=== PATIENT | male | born 1990 | race Caucasian/White ===

== ENCOUNTER 2016-07-26 18:17 | Emergency (ER) | payer OTHER ==
[~2016-07-26 18:17] MED LIST: /ACETCOD2T PO; /MOM400 PO; /QUET10TA PO; ABIL10TA PO; AMIT8CAP PO; AMIT8CAP4 PO; AMLO10TA2 PO; AMLO25TA PO; ASPI81TA21 PO; BACITAB3 PO; BACT800T5 PO; BENT10CA PO; CIPR500T3 PO; CIPR500T89 PO; COLA50CA3 PO; COLC1CAP PO; CULT10CA2 PO; CYMB1CAP PO; DEPA500T2 PO; DESM1TAB4 PO; DITR5TAB PO; DRIS50002 PO; EPIP0.3I2 IM; EPIP0.3I2 INJ; FLAG500T PO; GLYC3350 PO; HYDR-3363 PO; HYDR-3713 PO; HYDRO50TAB PO; IBUP200T2 PO; IBUP600T26 PO; IBUP80TA PO; IMOD2CHW PO; IMOD2TAB16 PO; INVE234I IM; INVE39IN IM; K-TA10TA2 PO; K-TA1TAB PO; KLOR1CAP2 PO; LAMO25TA2 PO; LATU40TA PO; LEVA500T PO; MACR100C3 PO; MAGO400T PO; MELO15TA4 PO; META28PO PO; META48.54 PO; METO5TAB2 PO; MIRA3350 PO; MIRT15TA3 PO; OXYB5TA PO; PANT40TA2 PO; PENT500C PO; PERC10TA PO; PERC5TAB PO; PRED20TA PO; PRED50TA PO; PRIL40CA PO; PROZ20CA11 PO; PROZ40CA PO; Q PA PO; QUET1TAB8 PO; REGL10TA6 PO; SENN8.6C PO; SENN8.6T76 PO; SENO8.6T11 PO; SENO8.6T2 PO; SERO1TAB PO; SILV1CRE19 TOP; TOPA25TA PO; TOPA25TA10 PO; TRAZ50TA4 PO; TYLE650T35 PO; VITA100066 PO; VITA50003 PO; ZOFR4TAB3 PO; ZYVO100T PO; [UNRECOGNIZED DRUG - CODE] PO; [UNRECOGNIZED DRUG - CODE] PO; atarax PO; keflex PO
[2016-07-26] MEDS ORDERED: ONDANSETRON 4MG/2ML VIAL (J2405) As Ordered ONE (19:19)
[2016-07-26] MEDS ORDERED: MECLIZINE 12.5 MG TAB As Ordered ONE (19:20)
[2016-07-26 19:35] LABS: BASO % 0.8 % (0.0-1.0); EOS # 0.2 K/mm3 (0.0-0.50); EOS % 2.6 % (0.0-3.0); LARGE UNSTAINED CELL # 0.2 K/mm3 (0.0-0.4); LYMPH # 2.5 K/mm3 (1.5-6.5); LYMPH % 34.2 % (24.0-44.0); MEAN CORPUSCULAR HEMOGLOBIN 29.3 pg (27.0-33.0); MEAN CORPUSCULAR HGB CONC 34.3 g/dl (32.0-36.5); MEAN CORPUSCULAR VOLUME 85.3 fl (80.0-96.0); MONO # 0.4 K/mm3 (0.0-0.8); MONO % 6.1 % (0.0-5.0); NEUTROPHILS # 3.9 K/mm3 (1.8-7.7); NEUTROPHILS % 53.4 % (36.0-66.0); PLATELET COUNT, AUTOMATED 219 k/mm3 (150-450); RED CELL DISTRIBUTION WIDTH 13.1 % (11.5-14.5); WHITE BLOOD COUNT 7.2 K/mm3 (4.0-10.0)
[2016-07-26 19:48] LABS: INR 0.96
--- NOTE | 2016-07-26 19:50 | REPUSA ---
CLINICAL HISTORY: Dizzy. TECHNIQUE: Multiple axial brain CT scan sections were obtained from base to vertex without contrast a dministration. COMMENTS: The study shows normal configuration of sella turcica. There are no intra or extra-axial collections. There is no mass effect or midline shift. There is no evidence of hematoma formation. No hydrocephal us is present. No abnormal calcifications are noted. No significant abnormalities are seen either in the posterior fossa or supratentorial compartment. The sinuses and mastoid air cells are patent. IMPRESSION: No evidence of acute intracranial pathology. Thank you for your kind referral of this patient.
[2016-07-26 20:05] LABS: ALBUMIN 3.3 GM/DL (3.2-5.2); ALBUMIN/GLOBULIN RATIO 1.03 (1.00-1.93); ALKALINE PHOSPHATASE 89 U/L (45-117); ALT/SGPT 50 U/L (12-78); AMYLASE 49 U/L (25-115); ANION GAP 10 MEQ/L (8-16); AST/SGOT 23 U/L (15-37); BILIRUBIN,DIRECT < 0.1 MG/DL (0.0-0.2); BILIRUBIN,TOTAL 0.1 MG/DL (0.2-1.0); BLOOD UREA NITROGEN 11 MG/DL (7-18); CALCIUM LEVEL 8.4 MG/DL (8.5-10.1); CARBON DIOXIDE LEVEL 26 MEQ/L (21-32); CHLORIDE LEVEL 107 MEQ/L (98-107); GLOMERULAR FILTRATION RATE > 60.0 (>60); GLUCOSE, FASTING 209 MG/DL (70-105); POTASSIUM SERUM 3.8 MEQ/L (3.5-5.1); SODIUM LEVEL 143 MEQ/L (136-145); TOTAL PROTEIN 6.5 GM/DL (6.4-8.2)
--- NOTE | 2016-07-26 21:21 | EDDOCDS ---
Nurse's Notes [facility] Name: Emanuel eDl Rio Age: 26 yrs Sex: Male : 1990 Arrival Date: 07/26/2016 Time: 18:17 Bed 14 Private MD: Elvira Latham Diagnosis: Vertigo of central origin;Labyrinthitis Presentation: 07/26 18:22 Presenting complaint: EMS states: Patient complains of being dizzy since last night js13 with nausea and vomited X1 today. Suicide/Homicide risk assessment- the patient denies having any suicidal and/or homicidal ideations and does not present with any other emotional, behavioral or mental health complaints. Status: Patient is not a conference services director or dependent. Transition of care: patient was not received from another setting of care. Care prior to arrival: See EMS report. IV initiated. Glucose check. 171. 18:22 Acuity: YAMEL Level 3 js13 18:22 Method Of Arrival: Ambulance 13 18:31 Adult Sepsis Screening: The patient does not have new or worsening altered mentation. js13 Patient's respiratory rate is less than 22. Systolic blood pressure is greater than 100. Patient has a qSOFA score of 0- Negative Sepsis Screen. Triage Assessment: 18:30 General: Appears in no apparent distress, Behavior is cooperative. Pain: Location: head js13 Pain currently is 4 out of 10 on a pain scale. Pt Declines HIV testing. Neurological: Level of Consciousness is awake, alert, obeys commands. Respiratory: Airway is patent Respiratory effort is even, unlabored, Respiratory pattern is regular, symmetrical. Derm: Skin is pink, warm & dry. Historical: - Allergies: Bees (Swelling); benadryl IV (coughs); SULFA (SULFONAMIDES) (Rash); Trazodone; Zyrtec (Hives); - Home Meds: 1. Topamax 25 mg Oral tab 2 times per day 2. Acidophilus Oral tab 100 million units twice a day 3. amlodipine 10 mg Oral tab nightly 4. desmopressin 0.1mg nightly 5. Invega Sustenna 234 mg/1.5 mL intramuscular syrg 1.5 mL every 3 weeks 6. EpiPen 0.3 mg/0.3 mL (1:1,000) injection atIn 0.3 mL as needed 7. lamotrigine 25 mg Oral tr24 daily 8. Prozac 40 mg Oral cap 1 cap once daily 9. potassium chloride 10 mEq Oral cpER 1 cap 3 times per day 10. pantoprazole 40 mg oral TbEC 1 tab once daily 11. oxybutynin chloride 5 mg Oral tab 1 tab 3 times per day 12. mirtazapine 15 mg Oral tab once daily - PMHx: Cholelithiasis; Depression; GERD; Hypertension; MRSA; Schizo-Affective Disorder; urinary difficulties; - PSHx: baldder botox; Arthroscopy, Knee- Right; - Social history: Smoking status: Patient states was never smoker of tobacco. No barriers to communication noted, The patient speaks fluent Romansh. - Family history: Not pertinent. - : The pt / caregiver states he / she is not on anticoagulants. Home medication list is obtained from the facility MAR. - Exposure Risk Screening:: None identified. Screenin:53 Screening information is obtained from the patient. Fall risk: No risks identified. ja5 Assistance ADL's: requires no assistance with activities of daily living. Assistance ADL's: Requires assistance with medication administration, assistance is provided by TLS. Abuse/DV Screen: The patient / caregiver reports he/she is: not in a situation that causes fear, pain or injury. Nutritional screening: On no prescribed diet. Advance Directives: There is an active Power of Pattern Cleaner, Cyndi Kahn, Mother. home support is adequate. Assessment: 18:51 General: Appears in no apparent distress, Behavior is appropriate for age, cooperative. ja5 Pain: Denies pain. Neurological: Level of Consciousness is awake, alert, Oriented to person, place, time, Ui Software Engineer are equal bilaterally Moves all extremities. Speech is normal. Cardiovascular: Capillary refill < 3 seconds Heart tones S1 S2 present Rhythm is sinus rhythm No ectopy. Respiratory: Airway is patent Respiratory effort is even, unlabored, Respiratory pattern is regular, symmetrical, Breath sounds are clear bilaterally. Derm: Skin is intact, Skin is dry, Skin is pink, warm & dry. normal, Skin temperature is warm. 19:28 Reassessment: Patient appears in no apparent distress at this time. Patient denies pain tm5 at this time. PT VOICES NO COMPLAINTS AT THIS TIME, RESP EASY, NO S/S OF ANY DISTRESS. Cardiovascular: Rhythm is sinus rhythm No ectopy. 20:54 General: Appears in no apparent distress, Behavior is appropriate for age, cooperative. af2 General: pt resting on stretcher quietly, offers no complaints at this time. will continue to monitor. bed locked and in lowest position, side rails up x2, call light is within reach. . Neurological: Level of Consciousness is awake, alert, Oriented to person, place, time. Respiratory: Airway is patent Respiratory effort is even, unlabored. Derm: Skin is normal. 21:18 General: Appears in no apparent distress, comfortable, Behavior is cooperative, pt mlc report feeling dizzy. Norman Rodriguez made aware. pt states he is comfortable with discharge. . Neurological: Level of Consciousness is awake, alert, Oriented to person, place, time. Respiratory: Airway is patent Respiratory effort is even, unlabored, Respiratory pattern is regular. Derm: Skin is normal. Vital Signs: 18:29 BP 167 / 73; Pulse 92; Resp 20; Temp 99.0(TE); Pulse Ox 97% on R/A; Weight 143.79 kg; dem1 Height 5 ft. 8 in. (172.72 cm); Pain 0/10; 18:32 BP 167 / 77 (auto/); tm5 18:33 Pulse 88 MON; Resp 18 S; Pulse Ox 97% on R/A; Pain 0/10; tm5 21:08 BP 167 / 91; Pulse 83; Resp 20; Temp 97.8(O); Pulse Ox 100% on R/A; Pain 0/10; alfredito 21:18 BP 142 / 62; Pulse 86; Resp 18; Temp 98.8; Pulse Ox 98% ; Pain 0/10; mlc 18:29 Body Mass Index 48.20 (143.79 kg, 172.72 cm) [facility] Vitals: 18:29 Log In Time N/A - ambulance arrival. [facility] ED Course: 18:18 Patient visited by Caroline Cherry, Train Station Server. lbd 18:18 Elvira Latham is Private Physician. lbd 18:18 Karen Chen, RN is Primary Nurse. lbd 18:18 Patient moved to Waiting lbd 18:18 Patient moved to 14 lbd 18:23 Triage Initiated js13 18:30 Patient visited by Joanie Servin. [facility] 18:30 Patient visited by Joanie Servin. dem1 18:30 Pt greeted and oriented to ED. Patient advised of names of staff involved in care, [facility] location of call rajput, wait times and NPO status. Patient has correct armband on for positive identification. Placed in gown. Bed in low position. Call light in reach. Side rails up X2. 18:31 Maintain field IV. Dressing intact. Good blood return noted. Site clean & dry. Gauge & js13 site: 20 gauge LAC. 18:32 Patient visited by Karen Wise RN. js13 18:33 Patient visited by Joanie Servin. dem1 18:33 nuclear monitoring technician on. Pulse ox on. NIBP on. dem1 18:55 The patient / caregiver is instructed regarding the plan of care and ED course. ja5 18:57 Primary Nurse role handed off by Karen Chen RN ja5 19:04 Norman Rodriguez FNP is PHCP. ke 19:04 Patient visited by Norman Rodriguez FNP. ke 19:04 Patient visited by Norman Rodriguez FNP. ke 19:[address],CARMEN is Primary Nurse. tm5 19:05 Patient visited by Ruth Ann Lane RN. tm5 19:05 Report received from Kate Bay RN, assumed care of pt at this time. tm5 19:22 Patient visited by Monalisa Jennings PCA. ls3 19:22 EKG done. (by ED staff). Reviewed by Norman LOZANO. ls3 19:24 [facility] [place] was scanned into [employer] and attached to record. ks16 19:27 Labs drawn. (by ED staff). Sent per order to lab. tm5 19:28 Troponin Sent. tm5 19:28 CIP Sent. tm5 19:28 CBC with Diff Sent. tm5 19:28 Prothrombin Time Profile\E\INR Sent. tm5 19:53 Patient visited by Norman Rodriguez FNP. ke 20:04 BASIC METABOLIC PROFILE Sent. mlc 20:05 LIVER PROFILE Sent. mlc 20:05 LIPASE Sent. mlc 20:05 AMYLASE Sent. mlc 20:15 CT Head Without Contrast Returned. EDMS 20:28 Patient visited by Norman Rodriguez FNP. ke 20:37 Patient visited by Ruth Ann Lane,CARMEN. tm5 20:55 Patient visited by Mey John RN. af2 21:00 Elvira Latham is Referral Physician. ke 21:08 Patient visited by Gabby Briceno PCA. alfredito 21:18 Discontinued IV lock intact, bleeding controlled, pressure dressing applied, No mlc redness/swelling at site. No procedures done that require assistance. Administered Medications: 19:26 Drug: NS 0.9% 1000 ml [sodium chloride 0.9 % intravenous solution] Route: IV; Rate: af2 bolus; Site: left antecubital; 19:26 Drug: Meclizine 50 mg [meclizine 12.5 mg tablet (4 tabs)] Route: PO; af2 19:27 Drug: Ondansetron 4 mg [ondansetron HCl 2 mg/mL intravenous solution (2 mL)] Route: af2 IVP; Site: left antecubital; Order Results: Lab Order: CBC with Diff; SPEC'M 07/26/16 19:25 Test: WHITE BLOOD COUNT; Value: 7.2; Range: 4.0-10.0; Units: K/mm3; Status: F Test: RED BLOOD COUNT; Value: 4.80; Range: 4.30-6.10; Units: M/mm3; Status: F Test: HEMOGLOBIN; Value: 14.1; Range: 14.0-18.0; Units: g/dl; Status: F Test: HEMATOCRIT; Value: 40.9; Range: 42.0-52.0; Abnormal: Below low normal; Units: %; Status: F Test: MEAN CORPUSCULAR VOLUME; Value: 85.3; Range: 80.0-96.0; Units: fl; Status: F Test: MEAN CORPUSCULAR HEMOGLOBIN; Value: 29.3; Range: 27.0-33.0; Units: pg; Status: F Test: MEAN CORPUSCULAR HGB CONC; Value: 34.3; Range: 32.0-36.5; Units: g/dl; Status: F Test: RED CELL DISTRIBUTION WIDTH; Value: 13.1; Range: 11.5-14.5; Units: %; Status: F Test: PLATELET COUNT, AUTOMATED; Value: 219; Range: 150-450; Units: k/mm3; Status: F Test: NEUTROPHILS %; Value: 53.4; Range: 36.0-66.0; Units: %; Status: F Test: LYMPH %; Value: 34.2; Range: 24.0-44.0; Units: %; Status: F Test: MONO %; Value: 6.1; Range: 0.0-5.0; Abnormal: Above high normal; Units: %; Status: F Test: EOS %; Value: 2.6; Range: 0.0-3.0; Units: %; Status: F Test: BASO %; Value: 0.8; Range: 0.0-1.0; Units: %; Status: F Test: LARGE UNSTAINED CELL %; Value: 3.0; Range: 0.0-4.0; Units: %; Status: F Test: NEUTROPHILS #; Value: 3.9; Range: 1.8-7.7; Units: K/mm3; Status: F Test: LYMPH #; Value: 2.5; Range: 1.5-6.5; Units: K/mm3; Status: F Test: MONO #; Value: 0.4; Range: 0.0-0.8; Units: K/mm3; Status: F Test: EOS #; Value: 0.2; Range: 0.0-0.50; Units: K/mm3; Status: F Test: BASO #; Value: 0.0; Range: 0.0-0.2; Units: K/mm3; Status: F Test: LARGE UNSTAINED CELL #; Value: 0.2; Range: 0.0-0.4; Units: K/mm3; Status: F Lab Order: Prothrombin Time Profile\E\INR; SPEC'M 07/26/16 19:25 Test: PROTHROMBIN TIME; Value: 12.9; Range: 12.3-14.5; Units: SECONDS; Status: F Test: INR; Value: 0.96; Status: F Test Note: ; THERAPUTIC HUMAN INR VALUES INDICATIONS NORMAL RANGES PROPHYLAXIS/TREATMENT OF: VENOUS THROMBOSIS 2.0-3.0 PULMONARY EMBOLISM 2.0-3.0 PREVENTION OF SYSTEMIC EMBOLISM FROM: TISSUE HEART VALVES 2.0-3.0 ACUTE MYOCARDIAL INFARCTION 2.0-3.0 VALVULAR HEART DISEASE 2.0-3.0 ATRIAL FIBRILLATION 2.0-3.0 MECHANICAL VALVES(HIGH RISK) 2.5-3.5 RECURRENT MYOCARDIAL INFARCTION 2.5-3.5 Lab Order: CIP; [facility] 07/26/16 19:25 Test: CPK CREATINE PHOSPHOKINASE; Value: 287; Range: 39-308; Units: U/L; Status: F Test: CK-MB VALUE MASS; Value: 3.5; Range: 0.0-3.6; Units: NG/ML; Status: F Test: MB/CK RELATIVE INDEX; Value: 1.21; Range: < OR =4; Status: F Test Note: ; DIAGNOSIS CRITERIA MMB ng/ml Relative Index (RI) NON-AMI < or = 5 N/A MARY ZONE > 5 < or = 4 AMI > 5 > 4 Lab Order: Troponin; [facility] 07/26/16 19:25 Test: TROPONIN I; Value: < 0.02; Range: < 0.10; Units: NG/ML; Status: F Test Note: ; Troponin I Reference Interval for [place] LOCI: 99th Percentile= 0.00-0.045 ng/ml Risk Stratification: <= 0.10 ng/ml Decreased Risk for Adverse Clinical Events. 0.10-1.50 ng/ml Increased Risk for Adverse Clinical Events. Evaluation of additional criterion and/or repeat testing in 2-6 hours is suggested to rule out myocardial damage. >= 1.50 ng/ml Indicative of Myocardial Injury. Lab Order: AMYLASE; [facility] 07/26/16 19:25 Test: AMYLASE; Value: 49; Range: 25-115; Units: U/L; Status: F Lab Order: LIPASE; [facility] 07/26/16 19:25 Test: LIPASE; Value: 161; Range: 73-393; Units: U/L; Status: F Lab Order: LIVER PROFILE; [facility] 07/26/16 19:25 Test: AST/SGOT; Value: 23; Range: 15-37; Units: U/L; Status: F Test: ALT/SGPT; Value: 50; Range: 12-78; Units: U/L; Status: F Test: ALKALINE PHOSPHATASE; Value: 89; Range: 45-117; Units: U/L; Status: F Test: BILIRUBIN,TOTAL; Value: 0.1; Range: 0.2-1.0; Abnormal: Below low normal; Units: MG/DL; Status: F Test: BILIRUBIN,DIRECT; Value: < 0.1; Range: 0.0-0.2; Units: MG/DL; Status: F Test: TOTAL PROTEIN; Value: 6.5; Range: 6.4-8.2; Units: GM/DL; Status: F Test: ALBUMIN; Value: 3.3; Range: 3.2-5.2; Units: GM/DL; Status: F Test: ALBUMIN/GLOBULIN RATIO; Value: 1.03; Range: 1.00-1.93; Status: F Lab Order: BASIC METABOLIC PROFILE; SPEC'M 07/26/16 19:25 Test: GLUCOSE, FASTING; Value: 209; Range: 70-105; Abnormal: Above high normal; Units: MG/DL; Status: F Test: BLOOD UREA NITROGEN; Value: 11; Range: 7-18; Units: MG/DL; Status: F Test: CREATININE FOR GFR; Value: 0.90; Range: 0.70-1.30; Units: MG/DL; Status: F Test: GLOMERULAR FILTRATION RATE; Value: > 60.0; Range: >60; Status: F Test: SODIUM LEVEL; Value: 143; Range: 136-145; Units: MEQ/L; Status: F Test: POTASSIUM SERUM; Value: 3.8; Range: 3.5-5.1; Units: MEQ/L; Status: F Test: CHLORIDE LEVEL; Value: 107; Range: 98-107; Units: MEQ/L; Status: F Test: CARBON DIOXIDE LEVEL; Value: 26; Range: 21-32; Units: MEQ/L; Status: F Test: ANION GAP; Value: 10; Range: 8-16; Units: MEQ/L; Status: F Test: CALCIUM LEVEL; Value: 8.4; Range: 8.5-10.1; Abnormal: Below low normal; Units: MG/DL; Status: F Test Note: ; Units are mL/min/1.73 m2 Chronic Kidney Disease Staging per NKF: Stage I & II GFR >=60 Normal to Mildly Decreased Stage III GFR 30-59 Moderately Decreased Stage IV GFR 15-29 Severely Decreased Stage V GFR <15 Very Little GFR Left ESRD GFR <15 on COMMUNITY SUPPORT PROFESSIONAL Radiology Order: CT Head Without Contrast Test: CT Head Without Contrast REASON FOR EXAMINATION: dizzy; ; CLINICAL HISTORY: Dizzy.; TECHNIQUE: Multiple axial brain CT scan sections were obtained from base to vertex without contrast a; dministration.; COMMENTS:; The study shows normal configuration of sella turcica. There are no intra or extra-axial collections.; There is no mass effect or midline shift. There is no evidence of hematoma formation. No hydrocephal; us is present. No abnormal calcifications are noted.; No significant abnormalities are seen either in the posterior fossa or supratentorial compartment.; The sinuses and mastoid air cells are patent.; IMPRESSION:; No evidence of acute intracranial pathology.; Thank you for your kind referral of this patient.; ; Outcome: 21:00 Discharge ordered by Provider. 21:18 Discharge Assessment: Patient awake, alert and oriented x 3. No cognitive and/or mlc functional deficits noted. Patient verbalized understanding of disposition instructions. patient administered narcotics - no. The following High Risk Discharge criteria are identified: None. Discharged to home ambulatory. Condition: good Condition: stable. Discharge instructions given to patient, Instructed on discharge instructions, follow up and referral plans. medication usage, Demonstrated understanding of instructions, medications, Pt was receptive of discharge instructions/ teaching. Prescriptions given X 1. CT Study completed. Property sent home with patient. 21:20 [place] the [place]. [facility] [place] Signatures: Dispatcher [employer] EDMS Caroline Cherry, Train Station Server Unit lbd Norman Rodriguez, DIRECTOR HOSPICE OPERATIONS DIRECTOR HOSPICE OPERATIONS Gabby Briceno, DEAN OF MEN DEAN OF MEN alfredito Gareth, Demalexandreashia dem1 Karen Wise,RN RN js13 Susan Blackman,CARMEN RN [facility] [place] Mey John RN RN af2 Monalisa Jennings, DEAN OF MEN DEAN OF MEN ls3 Jayashree Sandoval, Reg Reg ks[address],RN RN tm5 Alyson Connor,CARMEN RN ja5 Corrections: (The following items were deleted from the chart) 19: 19:28 AMYLASE+LAB sent. 5 EDMS 19:31 19:28 BASIC METABOLIC PROFILE+LAB sent. [facility] EDMS :31 19:28 LIPASE+LAB sent. 5 EDMS 19:31 19:28 LIVER PROFILE+LAB sent. tm5 EDMS MTDD
--- NOTE | 2016-07-26 21:21 | EDDOCDS ---
Physician Documentation [facility] Name: Emanuel Del Rio Age: 26 yrs Sex: Male : 1990 Arrival Date: 07/26/2016 Time: 18:17 Bed 14 Private MD: Elvira Latham Disposition: 07/26/16 21:00 Discharged to Home/Self Care. Impression: Vertigo of central origin, Labyrinthitis. - Condition is Stable. - Discharge Instructions: Labyrinthitis, Mzmk-es-Prob, Vertigo. - Prescriptions for Meclizine 25 mg Oral Tablet - take 1 tablet by ORAL route every 8 hours As needed; 30 tablet. - Medication Reconciliation, Local Pharmacy Hours form. - Follow up: Elvira Latham; When: 2 - 3 days; Reason: Recheck today's complaints, Continuance of care. - Problem is an ongoing problem. - Symptoms have improved. Historical: - Allergies: Bees (Swelling); benadryl IV (coughs); SULFA (SULFONAMIDES) (Rash); Trazodone; Zyrtec (Hives); - Home Meds: 1. Topamax 25 mg Oral tab 2 times per day 2. Acidophilus Oral tab 100 million units twice a day 3. amlodipine 10 mg Oral tab nightly 4. desmopressin 0.1mg nightly 5. Invega Sustenna 234 mg/1.5 mL intramuscular syrg 1.5 mL every 3 weeks 6. EpiPen 0.3 mg/0.3 mL (1:1,000) injection atIn 0.3 mL as needed 7. lamotrigine 25 mg Oral tr24 daily 8. Prozac 40 mg Oral cap 1 cap once daily 9. potassium chloride 10 mEq Oral cpER 1 cap 3 times per day 10. pantoprazole 40 mg oral TbEC 1 tab once daily 11. oxybutynin chloride 5 mg Oral tab 1 tab 3 times per day 12. mirtazapine 15 mg Oral tab once daily - PMHx: Cholelithiasis; Depression; GERD; Hypertension; MRSA; Schizo-Affective Disorder; urinary difficulties; - PSHx: baldder botox; Arthroscopy, Knee- Right; - Social history: Smoking status: Patient states was never smoker of tobacco. No barriers to communication noted, The patient speaks fluent Syriac. - Family history: Not pertinent. - : The pt / caregiver states he / she is not on anticoagulants. Home medication list is obtained from the facility MAR. - Exposure Risk Screening:: None identified. Vital Signs: 07/26 18:29 BP 167 / 73; Pulse 92; Resp 20; Temp 99.0(TE); Pulse Ox 97% on R/A; Weight 143.79 kg / dem1 317 lbs; Height 5 ft. 8 in. (172.72 cm); Pain 0/10; 18:32 BP 167 / 77 (auto/); tm5 18:33 Pulse 88 MON; Resp 18 S; Pulse Ox 97% on R/A; Pain 0/10; tm5 21:08 BP 167 / 91; Pulse 83; Resp 20; Temp 97.8(O); Pulse Ox 100% on R/A; Pain 0/10; alfredito 21:18 BP 142 / 62; Pulse 86; Resp 18; Temp 98.8; Pulse Ox 98% ; Pain 0/10; mlc 18:29 Body Mass Index 48.20 (143.79 kg, 172.72 cm) dem1 MDM: 19:15 NS 0.9% 1000 ml IV at bolus once ordered. ke 19:15 Ondansetron 4 mg IVP once ordered. ke 19:15 IV Saline Lock ordered. ke 19:15 Undress patient appropriately for examination ordered. ke 19:15 Meclizine 50 mg PO once ordered. ke 19:16 CBC with Diff Ordered. EDMS 19:16 Prothrombin Time Profile\E\INR Ordered. EDMS 19:17 Abdomen, Flat\E\Upright,PA Chest Ordered. EDMS 19:17 NOTHING BY MOUTH+DIET ordered. EDMS 19:17 CT Head Without Contrast Ordered. EDMS 19:17 CIP Ordered. EDMS 19:17 Troponin Ordered. EDMS 19:17 ECG WITH READING ER PHYS+CARDIAG ordered. EDMS 19:23 Financial registration complete. ks16 19:24 [facility] [place] Payment Agreement was scanned into [employer] and attached to record. ks16 19:33 AMYLASE Ordered. EDMS 19:33 LIPASE Ordered. EDMS 19:33 LIVER PROFILE Ordered. EDMS 19:34 BASIC METABOLIC PROFILE Ordered. EDMS 20:58 CBC with Diff Reviewed. ke 20:58 LIVER PROFILE Reviewed. ke 20:58 BASIC METABOLIC PROFILE Reviewed. ke 20:58 Prothrombin Time Profile\E\INR Reviewed. ke 20:58 CIP Reviewed. ke 20:58 Troponin Reviewed. ke 20:58 AMYLASE Reviewed. ke 20:58 LIPASE Reviewed. ke 20:58 CT Head Without Contrast Reviewed. ke Administered Medications: 19:26 Drug: NS 0.9% 1000 ml [sodium chloride 0.9 % intravenous solution] Route: IV; Rate: af2 bolus; Site: left antecubital; 19:26 Drug: Meclizine 50 mg [meclizine 12.5 mg tablet (4 tabs)] Route: PO; af2 19:27 Drug: Ondansetron 4 mg [ondansetron HCl 2 mg/mL intravenous solution (2 mL)] Route: af2 IVP; Site: left antecubital; Signatures: Dispatcher [employer] EDNorman Horton, CORPORATE SPECIALIST CORPORATE SPECIALIST Karen CartagenaRN CARMEN js13 Susan Blackman RN RN mlc Sorenson, Kimberly, Reg Reg ks16 Mey John RN af2 The chart was reviewed and I authenticate all verbal orders and agree with the evaluation and treatment provided.Corrections: (The following items were deleted from the chart) 19:31 19:16 AMYLASE+LAB ordered. EDMS EDMS 19:31 19:16 BASIC METABOLIC PROFILE+LAB ordered. EDMS EDMS 19:31 19:16 LIPASE+LAB ordered. EDMS EDMS 19:31 19:16 LIVER PROFILE+LAB ordered. EDMS EDMS Attachments: 19:24 [facility] [place] Payment Agreement [email or web address] MTDD
--- NOTE | 2016-07-27 07:01 | REP ---
Clinical: Abdominal pain and vomiting. Technique: Supine and cross-table lateral views of the abdomen and pelvis. Findings: There is no evidence for bowel obstruction and no obvious evidence to suggest perforation. Moderate fecal stasis and constipation suggested. No organomegaly nor abnormal calcifications. Skeletal structures intact. Supine view of the chest normal. Impression: Moderate fecal stasis and constipation suggested. Signed by Bhavin Riddle MD 07/27/2016 06:52 A
--- NOTE | 2016-07-27 08:03 | ECGEPIP ---
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
--- NOTE | 2016-07-28 22:21 | EDDOCDS ---
Physician Documentation [facility] Name: Emanuel Del Rio Age: 26 yrs Sex: Male : 1990 Arrival Date: 07/26/2016 Time: 18:17 Bed 14 Private MD: Elvira Latham Disposition: 07/26/16 21:00 Discharged to Home/Self Care. Impression: Vertigo of central origin, Labyrinthitis. - Condition is Stable. - Discharge Instructions: Labyrinthitis, [id number], Vertigo. - Prescriptions for Meclizine 25 mg Oral Tablet - take 1 tablet by ORAL route every 8 hours As needed; 30 tablet. - Medication Reconciliation, Local Pharmacy Hours form. - Follow up: Elvira Latham; When: 2 - 3 days; Reason: Recheck today's complaints, Continuance of care. - Problem is an ongoing problem. - Symptoms have improved. Historical: - Allergies: Bees (Swelling); benadryl IV (coughs); SULFA (SULFONAMIDES) (Rash); Trazodone; Zyrtec (Hives); - Home Meds: 1. Topamax 25 mg Oral tab 2 times per day 2. Acidophilus Oral tab 100 million units twice a day 3. amlodipine 10 mg Oral tab nightly 4. desmopressin 0.1mg nightly 5. Invega Sustenna 234 mg/1.5 mL intramuscular syrg 1.5 mL every 3 weeks 6. EpiPen 0.3 mg/0.3 mL (1:1,000) injection atIn 0.3 mL as needed 7. lamotrigine 25 mg Oral tr24 daily 8. Prozac 40 mg Oral cap 1 cap once daily 9. potassium chloride 10 mEq Oral cpER 1 cap 3 times per day 10. pantoprazole 40 mg oral TbEC 1 tab once daily 11. oxybutynin chloride 5 mg Oral tab 1 tab 3 times per day 12. mirtazapine 15 mg Oral tab once daily - PMHx: Cholelithiasis; Depression; GERD; Hypertension; MRSA; Schizo-Affective Disorder; urinary difficulties; - PSHx: baldder botox; Arthroscopy, Knee- Right; - Social history: Smoking status: Patient states was never smoker of tobacco. No barriers to communication noted, The patient speaks fluent Romanian. - Family history: Not pertinent. - : The pt / caregiver states he / she is not on anticoagulants. Home medication list is obtained from the facility MAR. - Exposure Risk Screening:: None identified. Vital Signs: 07/26 18:29 BP 167 / 73; Pulse 92; Resp 20; Temp 99.0(TE); Pulse Ox 97% on R/A; Weight 143.79 kg / dem1 317 lbs; Height 5 ft. 8 in. (172.72 cm); Pain 0/10; 18:32 BP 167 / 77 (auto/); tm5 18:33 Pulse 88 MON; Resp 18 S; Pulse Ox 97% on R/A; Pain 0/10; tm5 21:08 BP 167 / 91; Pulse 83; Resp 20; Temp 97.8(O); Pulse Ox 100% on R/A; Pain 0/10; alfredito 21:18 BP 142 / 62; Pulse 86; Resp 18; Temp 98.8; Pulse Ox 98% ; Pain 0/10; mlc 18:29 Body Mass Index 48.20 (143.79 kg, 172.72 cm) dem1 MDM: 19:15 NS 0.9% 1000 ml IV at bolus once ordered. ke 19:15 Ondansetron 4 mg IVP once ordered. ke 19:15 IV Saline Lock ordered. ke 19:15 Undress patient appropriately for examination ordered. ke 19:15 Meclizine 50 mg PO once ordered. ke 19:16 CBC with Diff Ordered. EDMS 19:16 Prothrombin Time Profile\E\INR Ordered. EDMS 19:17 Abdomen, Flat\E\Upright,PA Chest Ordered. EDMS 19:17 NOTHING BY MOUTH+DIET ordered. EDMS 19:17 CT Head Without Contrast Ordered. EDMS 19:17 CIP Ordered. EDMS 19:17 Troponin Ordered. EDMS 19:17 ECG WITH READING ER PHYS+CARDIAG ordered. EDMS 19:23 Financial registration complete. [email or web address] 19:24 [place] [place] was scanned into [employer] and attached to record. [email or web address] 19:33 AMYLASE Ordered. EDMS 19:33 LIPASE Ordered. EDMS 19:33 LIVER PROFILE Ordered. EDMS 19:34 BASIC METABOLIC PROFILE Ordered. EDMS 20:58 CBC with Diff Reviewed. ke 20:58 LIVER PROFILE Reviewed. ke 20:58 BASIC METABOLIC PROFILE Reviewed. ke 20:58 Prothrombin Time Profile\E\INR Reviewed. ke 20:58 CIP Reviewed. ke 20:58 Troponin Reviewed. ke 20:58 AMYLASE Reviewed. ke 20:58 LIPASE Reviewed. ke 20:58 CT Head Without Contrast Reviewed. ke 07/27 11:59 T-Sheet-- Draft Copy was scanned into [employer] and attached to record. gb 11:59 ECG/EKG was scanned into [employer] and attached to record. gb 15:07 Radiology Report was scanned into [employer] and attached to record. gb Administered Medications: 07/26 19:26 Drug: NS 0.9% 1000 ml [sodium chloride 0.9 % intravenous solution] Route: IV; Rate: af2 bolus; Site: left antecubital; 19:26 Drug: Meclizine 50 mg [meclizine 12.5 mg tablet (4 tabs)] Route: PO; af2 19:27 Drug: Ondansetron 4 mg [ondansetron HCl 2 mg/mL intravenous solution (2 mL)] Route: af2 IVP; Site: left antecubital; Signatures: Dispatcher [employer] EDMS Tita Wu, Reg Reg gb Norman Rodriguez, FIELD SALES MANAGER FIELD SALES MANAGER Karen CartagenaRN RN [id number] Susan Blackman RN RN mlc Sorenson, Kimberly, Reg Reg [id number] Mey John RN af2 The chart was reviewed and I authenticate all verbal orders and agree with the evaluation and treatment provided.Corrections: (The following items were deleted from the chart) 19:31 19:16 AMYLASE+LAB ordered. EDMS EDMS 19:31 19:16 BASIC METABOLIC PROFILE+LAB ordered. EDMS EDMS 19:31 19:16 LIPASE+LAB ordered. EDMS EDMS 19:31 19:16 LIVER PROFILE+LAB ordered. EDMS EDMS Attachments: 19:24 [place] [place] Agreement [email or web address] 07/27 11:59 T-Sheet-- Draft Copy gb 11:59 ECG/EKG gb Chart Complete MTDD
--- NOTE | 2016-07-28 22:21 | EDDOCDS ---
Physician Documentation [facility] [place] Name: Emanuel Del Rio Age: 26 yrs Sex: Male : 1990 Arrival Date: 07/26/2016 Time: 18:17 Bed 14 Private MD: Elvira Latham Disposition: 07/26/16 21:00 Discharged to Home/Self Care. Impression: Vertigo of central origin, Labyrinthitis. - Condition is Stable. - Discharge Instructions: Labyrinthitis, [id number], Vertigo. - Prescriptions for Meclizine 25 mg Oral Tablet - take 1 tablet by ORAL route every 8 hours As needed; 30 tablet. - Medication Reconciliation, Local Pharmacy Hours form. - Follow up: Elvira Latham; When: 2 - 3 days; Reason: Recheck today's complaints, Continuance of care. - Problem is an ongoing problem. - Symptoms have improved. Historical: - Allergies: Bees (Swelling); benadryl IV (coughs); SULFA (SULFONAMIDES) (Rash); Trazodone; Zyrtec (Hives); - Home Meds: 1. Topamax 25 mg Oral tab 2 times per day 2. Acidophilus Oral tab 100 million units twice a day 3. amlodipine 10 mg Oral tab nightly 4. desmopressin 0.1mg nightly 5. Invega Sustenna 234 mg/1.5 mL intramuscular syrg 1.5 mL every 3 weeks 6. EpiPen 0.3 mg/0.3 mL (1:1,000) injection atIn 0.3 mL as needed 7. lamotrigine 25 mg Oral tr24 daily 8. Prozac 40 mg Oral cap 1 cap once daily 9. potassium chloride 10 mEq Oral cpER 1 cap 3 times per day 10. pantoprazole 40 mg oral TbEC 1 tab once daily 11. oxybutynin chloride 5 mg Oral tab 1 tab 3 times per day 12. mirtazapine 15 mg Oral tab once daily - PMHx: Cholelithiasis; Depression; GERD; Hypertension; MRSA; Schizo-Affective Disorder; urinary difficulties; - PSHx: baldder botox; Arthroscopy, Knee- Right; - Social history: Smoking status: Patient states was never smoker of tobacco. No barriers to communication noted, The patient speaks fluent Khmer. - Family history: Not pertinent. - : The pt / caregiver states he / she is not on anticoagulants. Home medication list is obtained from the facility MAR. - Exposure Risk Screening:: None identified. Vital Signs: 07/26 18:29 BP 167 / 73; Pulse 92; Resp 20; Temp 99.0(TE); Pulse Ox 97% on R/A; Weight 143.79 kg / dem1 317 lbs; Height 5 ft. 8 in. (172.72 cm); Pain 0/10; 18:32 BP 167 / 77 (auto/); tm5 18:33 Pulse 88 MON; Resp 18 S; Pulse Ox 97% on R/A; Pain 0/10; tm5 21:08 BP 167 / 91; Pulse 83; Resp 20; Temp 97.8(O); Pulse Ox 100% on R/A; Pain 0/10; alfredito 21:18 BP 142 / 62; Pulse 86; Resp 18; Temp 98.8; Pulse Ox 98% ; Pain 0/10; mlc 18:29 Body Mass Index 48.20 (143.79 kg, 172.72 cm) dem1 MDM: 19:15 NS 0.9% 1000 ml IV at bolus once ordered. ke 19:15 Ondansetron 4 mg IVP once ordered. ke 19:15 IV Saline Lock ordered. ke 19:15 Undress patient appropriately for examination ordered. ke 19:15 Meclizine 50 mg PO once ordered. ke 19:16 CBC with Diff Ordered. EDMS 19:16 Prothrombin Time Profile\E\INR Ordered. EDMS 19:17 Abdomen, Flat\E\Upright,PA Chest Ordered. EDMS 19:17 NOTHING BY MOUTH+DIET ordered. EDMS 19:17 CT Head Without Contrast Ordered. EDMS 19:17 CIP Ordered. EDMS 19:17 Troponin Ordered. EDMS 19:17 ECG WITH READING ER PHYS+CARDIAG ordered. EDMS 19:23 Financial registration complete. [email or web address] 19:24 [place] [place] Payment Agreement was scanned into [employer] and attached to record. [email or web address] 19:33 AMYLASE Ordered. EDMS 19:33 LIPASE Ordered. EDMS 19:33 LIVER PROFILE Ordered. EDMS 19:34 BASIC METABOLIC PROFILE Ordered. EDMS 20:58 CBC with Diff Reviewed. ke 20:58 LIVER PROFILE Reviewed. ke 20:58 BASIC METABOLIC PROFILE Reviewed. ke 20:58 Prothrombin Time Profile\E\INR Reviewed. ke 20:58 CIP Reviewed. ke 20:58 Troponin Reviewed. ke 20:58 AMYLASE Reviewed. ke 20:58 LIPASE Reviewed. ke 20:58 CT Head Without Contrast Reviewed. ke 07/27 11:59 T-Sheet-- Draft Copy was scanned into [employer] and attached to record. gb 11:59 ECG/EKG was scanned into [employer] and attached to record. gb 15:07 Radiology Report was scanned into [employer] and attached to record. gb Administered Medications: 07/26 19:26 Drug: NS 0.9% 1000 ml [sodium chloride 0.9 % intravenous solution] Route: IV; Rate: af2 bolus; Site: left antecubital; 19:26 Drug: Meclizine 50 mg [meclizine 12.5 mg tablet (4 tabs)] Route: PO; af2 19:27 Drug: Ondansetron 4 mg [ondansetron HCl 2 mg/mL intravenous solution (2 mL)] Route: af2 IVP; Site: left antecubital; Signatures: Dispatcher [employer] EDMS Tita Wu, Reg Reg gb Norman Rodriguez, BUTTONER BUTTONER Karen CartagenaRN RN [id number] Susan Blackman RN RN mlc Sorenson, Kimberly, Reg Reg [id number] Mey John RN af2 The chart was reviewed and I authenticate all verbal orders and agree with the evaluation and treatment provided.Corrections: (The following items were deleted from the chart) 19:31 19:16 AMYLASE+LAB ordered. EDMS EDMS 19:31 19:16 BASIC METABOLIC PROFILE+LAB ordered. EDMS EDMS 19:31 19:16 LIPASE+LAB ordered. EDMS EDMS 19:31 19:16 LIVER PROFILE+LAB ordered. EDMS EDMS Attachments: 19:24 [facility] [place] Payment Agreement [email or web address] 07/27 11:59 T-Sheet-- Draft Copy gb 11:59 ECG/EKG gb Chart Complete MTDD
--- NOTE | 2016-07-28 22:21 | EDDOCDS ---
Nurse's Notes [facility] Name: Emanuel Del Rio Age: 26 yrs Sex: Male : 1990 Arrival Date: 07/26/2016 Time: 18:17 Bed 14 Private MD: Elvira Latham Diagnosis: Vertigo of central origin;Labyrinthitis Presentation: 07/26 18:22 Presenting complaint: EMS states: Patient complains of being dizzy since last night js13 with nausea and vomited X1 today. Suicide/Homicide risk assessment- the patient denies having any suicidal and/or homicidal ideations and does not present with any other emotional, behavioral or mental health complaints. Status: Patient is not a coordinator volunteer services or dependent. Transition of care: patient was not received from another setting of care. Care prior to arrival: See EMS report. IV initiated. Glucose check. 171. 18:22 Acuity: YAMEL Level 3 js13 18:22 Method Of Arrival: Ambulance 13 18:31 Adult Sepsis Screening: The patient does not have new or worsening altered mentation. js13 Patient's respiratory rate is less than 22. Systolic blood pressure is greater than 100. Patient has a qSOFA score of 0- Negative Sepsis Screen. Triage Assessment: 18:30 General: Appears in no apparent distress, Behavior is cooperative. Pain: Location: head js13 Pain currently is 4 out of 10 on a pain scale. Pt Declines HIV testing. Neurological: Level of Consciousness is awake, alert, obeys commands. Respiratory: Airway is patent Respiratory effort is even, unlabored, Respiratory pattern is regular, symmetrical. Derm: Skin is pink, warm & dry. Historical: - Allergies: Bees (Swelling); benadryl IV (coughs); SULFA (SULFONAMIDES) (Rash); Trazodone; Zyrtec (Hives); - Home Meds: 1. Topamax 25 mg Oral tab 2 times per day 2. Acidophilus Oral tab 100 million units twice a day 3. amlodipine 10 mg Oral tab nightly 4. desmopressin 0.1mg nightly 5. Invega Sustenna 234 mg/1.5 mL intramuscular syrg 1.5 mL every 3 weeks 6. EpiPen 0.3 mg/0.3 mL (1:1,000) injection atIn 0.3 mL as needed 7. lamotrigine 25 mg Oral tr24 daily 8. Prozac 40 mg Oral cap 1 cap once daily 9. potassium chloride 10 mEq Oral cpER 1 cap 3 times per day 10. pantoprazole 40 mg oral TbEC 1 tab once daily 11. oxybutynin chloride 5 mg Oral tab 1 tab 3 times per day 12. mirtazapine 15 mg Oral tab once daily - PMHx: Cholelithiasis; Depression; GERD; Hypertension; MRSA; Schizo-Affective Disorder; urinary difficulties; - PSHx: baldder botox; Arthroscopy, Knee- Right; - Social history: Smoking status: Patient states was never smoker of tobacco. No barriers to communication noted, The patient speaks fluent Wolof. - Family history: Not pertinent. - : The pt / caregiver states he / she is not on anticoagulants. Home medication list is obtained from the facility MAR. - Exposure Risk Screening:: None identified. Screenin:53 Screening information is obtained from the patient. Fall risk: No risks identified. ja5 Assistance ADL's: requires no assistance with activities of daily living. Assistance ADL's: Requires assistance with medication administration, assistance is provided by TLS. Abuse/DV Screen: The patient / caregiver reports he/she is: not in a situation that causes fear, pain or injury. Nutritional screening: On no prescribed diet. Advance Directives: There is an active Power of Metal Bench Patternmaker, Cyndi Kahn, Mother. home support is adequate. Assessment: 18:51 General: Appears in no apparent distress, Behavior is appropriate for age, cooperative. ja5 Pain: Denies pain. Neurological: Level of Consciousness is awake, alert, Oriented to person, place, time, Can Repairer are equal bilaterally Moves all extremities. Speech is normal. Cardiovascular: Capillary refill < 3 seconds Heart tones S1 S2 present Rhythm is sinus rhythm No ectopy. Respiratory: Airway is patent Respiratory effort is even, unlabored, Respiratory pattern is regular, symmetrical, Breath sounds are clear bilaterally. Derm: Skin is intact, Skin is dry, Skin is pink, warm & dry. normal, Skin temperature is warm. 19:28 Reassessment: Patient appears in no apparent distress at this time. Patient denies pain tm5 at this time. PT VOICES NO COMPLAINTS AT THIS TIME, RESP EASY, NO S/S OF ANY DISTRESS. Cardiovascular: Rhythm is sinus rhythm No ectopy. 20:54 General: Appears in no apparent distress, Behavior is appropriate for age, cooperative. af2 General: pt resting on stretcher quietly, offers no complaints at this time. will continue to monitor. bed locked and in lowest position, side rails up x2, call light is within reach. . Neurological: Level of Consciousness is awake, alert, Oriented to person, place, time. Respiratory: Airway is patent Respiratory effort is even, unlabored. Derm: Skin is normal. 21:18 General: Appears in no apparent distress, comfortable, Behavior is cooperative, pt mlc report feeling dizzy. Norman Rodriguez made aware. pt states he is comfortable with discharge. . Neurological: Level of Consciousness is awake, alert, Oriented to person, place, time. Respiratory: Airway is patent Respiratory effort is even, unlabored, Respiratory pattern is regular. Derm: Skin is normal. Vital Signs: 18:29 BP 167 / 73; Pulse 92; Resp 20; Temp 99.0(TE); Pulse Ox 97% on R/A; Weight 143.79 kg; dem1 Height 5 ft. 8 in. (172.72 cm); Pain 0/10; 18:32 BP 167 / 77 (auto/); tm5 18:33 Pulse 88 MON; Resp 18 S; Pulse Ox 97% on R/A; Pain 0/10; tm5 21:08 BP 167 / 91; Pulse 83; Resp 20; Temp 97.8(O); Pulse Ox 100% on R/A; Pain 0/10; alfredito 21:18 BP 142 / 62; Pulse 86; Resp 18; Temp 98.8; Pulse Ox 98% ; Pain 0/10; mlc 18:29 Body Mass Index 48.20 (143.79 kg, 172.72 cm) [facility] Vitals: 18:29 Log In Time N/A - ambulance arrival. [facility] ED Course: 18:18 Patient visited by Caroline Cherry, Bagel Maker. lbd 18:18 Elvira Latham is Private Physician. lbd 18:18 Karen Chen, RN is Primary Nurse. lbd 18:18 Patient moved to Waiting lbd 18:18 Patient moved to 14 lbd 18:23 Triage Initiated js13 18:30 Patient visited by Joanie Servin. [facility] 18:30 Patient visited by Joanie Servin. dem1 18:30 Pt greeted and oriented to ED. Patient advised of names of staff involved in care, [facility] location of call rajput, wait times and NPO status. Patient has correct armband on for positive identification. Placed in gown. Bed in low position. Call light in reach. Side rails up X2. 18:31 Maintain field IV. Dressing intact. Good blood return noted. Site clean & dry. Gauge & js13 site: 20 gauge LAC. 18:32 Patient visited by Karen Wise RN. js13 18:33 Patient visited by Joanie Servin. dem1 18:33 monitor technician on. Pulse ox on. NIBP on. dem1 18:55 The patient / caregiver is instructed regarding the plan of care and ED course. ja5 18:57 Primary Nurse role handed off by Karen Chen RN ja5 19:04 Norman Rodriguez FNP is PHCP. ke 19:04 Patient visited by Norman Rodriguez FNP. ke 19:04 Patient visited by Norman Rodriguez FNP. ke 19:[address],CARMEN is Primary Nurse. tm5 19:05 Patient visited by Ruth Ann Lane RN. tm5 19:05 Report received from Kate Bay RN, assumed care of pt at this time. tm5 19:22 Patient visited by Monalisa Jennings PCA. ls3 19:22 EKG done. (by ED staff). Reviewed by Norman LOZANO. ls3 19:24 [facility] Payment Agreement was scanned into [employer] and attached to record. ks16 19:27 Labs drawn. (by ED staff). Sent per order to lab. tm5 19:28 Troponin Sent. tm5 19:28 CIP Sent. tm5 19:28 CBC with Diff Sent. tm5 19:28 Prothrombin Time Profile\E\INR Sent. tm5 19:53 Patient visited by Norman Rodriguez FNP. ke 20:04 BASIC METABOLIC PROFILE Sent. mlc 20:05 LIVER PROFILE Sent. mlc 20:05 LIPASE Sent. mlc 20:05 AMYLASE Sent. mlc 20:15 CT Head Without Contrast Returned. EDMS 20:28 Patient visited by Norman Rodriguez FNP. ke 20:37 [address] visited by Ruth Ann Lane,CARMEN. tm5 20:55 Patient visited by Mey John,CARMEN. af2 21:00 Elvira Latham is Referral Physician. ke 21:08 Patient visited by Gabby Briceno PCA. alfredito 21:18 Discontinued IV lock intact, bleeding controlled, pressure dressing applied, No mlc redness/swelling at site. No procedures done that require assistance. 07/27 07:41 Abdomen, Flat\E\Upright,PA Chest Returned. EDMS 08:22 EKG-ADULT Returned. EDMS 11:59 T-Sheet-- Draft Copy was scanned into [employer] and attached to record. gb 11:59 ECG/EKG was scanned into [employer] and attached to record. gb 15:07 Radiology Report was scanned into [employer] and attached to record. gb Administered Medications: 07/26 19:26 Drug: NS 0.9% 1000 ml [sodium chloride 0.9 % intravenous solution] Route: IV; Rate: af2 bolus; Site: left antecubital; 19:26 Drug: Meclizine 50 mg [meclizine 12.5 mg tablet (4 tabs)] Route: PO; af2 19:27 Drug: Ondansetron 4 mg [ondansetron HCl 2 mg/mL intravenous solution (2 mL)] Route: af2 IVP; Site: left antecubital; Order Results: Lab Order: CBC with Diff; SPEC'M 07/26/16 19:25 Test: WHITE BLOOD COUNT; Value: 7.2; Range: 4.0-10.0; Units: K/mm3; Status: F Test: RED BLOOD COUNT; Value: 4.80; Range: 4.30-6.10; Units: M/mm3; Status: F Test: HEMOGLOBIN; Value: 14.1; Range: 14.0-18.0; Units: g/dl; Status: F Test: HEMATOCRIT; Value: 40.9; Range: 42.0-52.0; Abnormal: Below low normal; Units: %; Status: F Test: MEAN CORPUSCULAR VOLUME; Value: 85.3; Range: 80.0-96.0; Units: fl; Status: F Test: MEAN CORPUSCULAR HEMOGLOBIN; Value: 29.3; Range: 27.0-33.0; Units: pg; Status: F Test: MEAN CORPUSCULAR HGB CONC; Value: 34.3; Range: 32.0-36.5; Units: g/dl; Status: F Test: RED CELL DISTRIBUTION WIDTH; Value: 13.1; Range: 11.5-14.5; Units: %; Status: F Test: PLATELET COUNT, AUTOMATED; Value: 219; Range: 150-450; Units: k/mm3; Status: F Test: NEUTROPHILS %; Value: 53.4; Range: 36.0-66.0; Units: %; Status: F Test: LYMPH %; Value: 34.2; Range: 24.0-44.0; Units: %; Status: F Test: MONO %; Value: 6.1; Range: 0.0-5.0; Abnormal: Above high normal; Units: %; Status: F Test: EOS %; Value: 2.6; Range: 0.0-3.0; Units: %; Status: F Test: BASO %; Value: 0.8; Range: 0.0-1.0; Units: %; Status: F Test: LARGE UNSTAINED CELL %; Value: 3.0; Range: 0.0-4.0; Units: %; Status: F Test: NEUTROPHILS #; Value: 3.9; Range: 1.8-7.7; Units: K/mm3; Status: F Test: LYMPH #; Value: 2.5; Range: 1.5-6.5; Units: K/mm3; Status: F Test: MONO #; Value: 0.4; Range: 0.0-0.8; Units: K/mm3; Status: F Test: EOS #; Value: 0.2; Range: 0.0-0.50; Units: K/mm3; Status: F Test: BASO #; Value: 0.0; Range: 0.0-0.2; Units: K/mm3; Status: F Test: LARGE UNSTAINED CELL #; Value: 0.2; Range: 0.0-0.4; Units: K/mm3; Status: F Lab Order: Prothrombin Time Profile\E\INR; SPEC'M 07/26/16 19:25 Test: PROTHROMBIN TIME; Value: 12.9; Range: 12.3-14.5; Units: SECONDS; Status: F Test: INR; Value: 0.96; Status: F Test Note: ; THERAPUTIC HUMAN INR VALUES INDICATIONS NORMAL RANGES PROPHYLAXIS/TREATMENT OF: VENOUS THROMBOSIS 2.0-3.0 PULMONARY EMBOLISM 2.0-3.0 PREVENTION OF SYSTEMIC EMBOLISM FROM: TISSUE HEART VALVES 2.0-3.0 ACUTE MYOCARDIAL INFARCTION 2.0-3.0 VALVULAR HEART DISEASE 2.0-3.0 ATRIAL FIBRILLATION 2.0-3.0 MECHANICAL VALVES(HIGH RISK) 2.5-3.5 RECURRENT MYOCARDIAL INFARCTION 2.5-3.5 Lab Order: CIP; [facility] 07/26/16 19:25 Test: CPK CREATINE PHOSPHOKINASE; Value: 287; Range: 39-308; Units: U/L; Status: F Test: CK-MB VALUE MASS; Value: 3.5; Range: 0.0-3.6; Units: NG/ML; Status: F Test: MB/CK RELATIVE INDEX; Value: 1.21; Range: < OR =4; Status: F Test Note: ; DIAGNOSIS CRITERIA MMB ng/ml Relative Index (RI) NON-AMI < or = 5 N/A MARY ZONE > 5 < or = 4 AMI > 5 > 4 Lab Order: Troponin; 07/26/16 19:25 Test: TROPONIN I; Value: < 0.02; Range: < 0.10; Units: NG/ML; Status: F Test Note: ; Troponin I Reference Interval for [employer] LOCI: 99th Percentile= 0.00-0.045 ng/ml Risk Stratification: <= 0.10 ng/ml Decreased Risk for Adverse Clinical Events. 0.10-1.50 ng/ml Increased Risk for Adverse Clinical Events. Evaluation of additional criterion and/or repeat testing in 2-6 hours is suggested to rule out myocardial damage. >= 1.50 ng/ml Indicative of Myocardial Injury. Lab Order: AMYLASE; 07/26/16 19:25 Test: AMYLASE; Value: 49; Range: 25-115; Units: U/L; Status: F Lab Order: LIPASE; [facility] 07/26/16 19:25 Test: LIPASE; Value: 161; Range: 73-393; Units: U/L; Status: F Lab Order: LIVER PROFILE; [facility] 07/26/16 19:25 Test: AST/SGOT; Value: 23; Range: 15-37; Units: U/L; Status: F Test: ALT/SGPT; Value: 50; Range: 12-78; Units: U/L; Status: F Test: ALKALINE PHOSPHATASE; Value: 89; Range: 45-117; Units: U/L; Status: F Test: BILIRUBIN,TOTAL; Value: 0.1; Range: 0.2-1.0; Abnormal: Below low normal; Units: MG/DL; Status: F Test: BILIRUBIN,DIRECT; Value: < 0.1; Range: 0.0-0.2; Units: MG/DL; Status: F Test: TOTAL PROTEIN; Value: 6.5; Range: 6.4-8.2; Units: GM/DL; Status: F Test: ALBUMIN; Value: 3.3; Range: 3.2-5.2; Units: GM/DL; Status: F Test: ALBUMIN/GLOBULIN RATIO; Value: 1.03; Range: 1.00-1.93; Status: F Lab Order: BASIC METABOLIC PROFILE; [facility] 07/26/16 19:25 Test: GLUCOSE, FASTING; Value: 209; Range: 70-105; Abnormal: Above high normal; Units: MG/DL; Status: F Test: BLOOD UREA NITROGEN; Value: 11; Range: 7-18; Units: MG/DL; Status: F Test: CREATININE FOR GFR; Value: 0.90; Range: 0.70-1.30; Units: MG/DL; Status: F Test: GLOMERULAR FILTRATION RATE; Value: > 60.0; Range: >60; Status: F Test: SODIUM LEVEL; Value: 143; Range: 136-145; Units: MEQ/L; Status: F Test: POTASSIUM SERUM; Value: 3.8; Range: 3.5-5.1; Units: MEQ/L; Status: F Test: CHLORIDE LEVEL; Value: 107; Range: 98-107; Units: MEQ/L; Status: F Test: CARBON DIOXIDE LEVEL; Value: 26; Range: 21-32; Units: MEQ/L; Status: F Test: ANION GAP; Value: 10; Range: 8-16; Units: MEQ/L; Status: F Test: CALCIUM LEVEL; Value: 8.4; Range: 8.5-10.1; Abnormal: Below low normal; Units: MG/DL; Status: F Test Note: ; Units are mL/min/1.73 m2 Chronic Kidney Disease Staging per NKF: Stage I & II GFR >=60 Normal to Mildly Decreased Stage III GFR 30-59 Moderately Decreased Stage IV GFR 15-29 Severely Decreased Stage V GFR <15 Very Little GFR Left ESRD GFR <15 on CHEMICAL PLANT MANAGER Radiology Order: Abdomen, Flat\E\Upright,PA Chest Test: Abdomen, Flat\E\Upright,PA Chest REASON FOR EXAMINATION: vomiting; Clinical: Abdominal pain and vomiting.; ; Technique: Supine and cross-table lateral views of the abdomen and pelvis.; ; Findings:; There is no evidence for bowel obstruction and no obvious evidence to suggest; perforation. Moderate fecal stasis and constipation suggested. No organomegaly; nor abnormal calcifications. Skeletal structures intact. Supine view of the; chest normal.; ; Impression:; Moderate fecal stasis and constipation suggested.; ; ; ; ; Signed by; Bhavin Riddle MD 07/27/2016 06:52 A; Radiology Order: CT Head Without Contrast Test: CT Head Without Contrast REASON FOR EXAMINATION: dizzy; ; CLINICAL HISTORY: Dizzy.; TECHNIQUE: Multiple axial brain CT scan sections were obtained from base to vertex without contrast a; dministration.; COMMENTS:; The study shows normal configuration of sella turcica. There are no intra or extra-axial collections.; There is no mass effect or midline shift. There is no evidence of hematoma formation. No hydrocephal; us is present. 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 ke 21:18 Discharge Assessment: Patient awake, alert and oriented x 3. No cognitive and/or mlc functional deficits noted. Patient verbalized understanding of disposition instructions. patient administered narcotics - no. The following High Risk Discharge criteria are identified: None. Discharged to home ambulatory. Condition: good Condition: stable. Discharge instructions given to patient, Instructed on discharge instructions, follow up and referral plans. medication usage, Demonstrated understanding of instructions, medications, Pt was receptive of discharge instructions/ teaching. Prescriptions given X 1. CT Study completed. Property sent home with patient. 21:20 Patient left the ED. [facility] Signatures: Dispatcher [employer] EDMS Caroline Cherry, Bagel Maker Unit lbd Tita Wu, Reg Reg gb Norman Rodriguez FNP [facility] Gabby Briceno, GREASE WORKER GREASE WORKER alfredito Gareth, Karrieia dem1 Karen Wise,RN RN js13 Susan BlackmanRN RN [facility] Mey John RN RN af2 Monalisa Jennings, GREASE WORKER GREASE WORKER ls3 Jayashree Sandoval, Reg Reg ks[address] Ruth [address],RN RN tm5 Alyson Connor,RN RN ja5 Corrections: (The following items were deleted from the chart) 19:31 19:28 AMYLASE+LAB sent. tm5 EDMS 19:31 19:28 BASIC METABOLIC PROFILE+LAB sent. tm5 EDMS 19:31 19:28 LIPASE+LAB sent. tm5 EDMS 19:31 19:28 LIVER PROFILE+LAB sent. 5 EDMS Chart Complete MTDD
== END 2016-07-26 21:20 | disposition home or self-care (01) ==
LOC: M ED 18:17
DX: H83.09 Labyrinthitis, unspecified ear (principal); I10 Essential (primary) hypertension; K21.9 Gastro-esophageal reflux disease without esophagitis; F32.9 Major depressive disorder, single episode, unspecified; Z87.19 Personal history of other diseases of the digestive system; Z86.14 Personal history of Methicillin resistant Staphylococcus aureus infection; F25.9 Schizoaffective disorder, unspecified; N39.9 Disorder of urinary system, unspecified; Z79.899 Other long term (current) drug therapy; Z91.030 Bee allergy status; Z88.2 Allergy status to sulfonamides; Z88.8 Allergy status to other drugs, medicaments and biological substances
CPT/HCPCS: 36415; 70450; 74022; 80048; 80076; 82150; 82550; 82553; 83690; 85025; 85610; 93005; 96374; 99285; J2405

== ENCOUNTER 2016-09-05 13:35 | Emergency (ER) | payer OTHER ==
[2016-09-05] MEDS ORDERED: ONDANSETRON 4MG/2ML VIAL (J2405) As Ordered ONE (15:04)
[2016-09-05 15:12] LABS: BASO % 0.6 % (0.0-1.0); EOS # 0.1 K/mm3 (0.0-0.50); LARGE UNSTAINED CELL # 0.3 K/mm3 (0.0-0.4); LYMPH # 2.9 K/mm3 (1.5-6.5); LYMPH % 43.8 % (24.0-44.0); MEAN CORPUSCULAR HEMOGLOBIN 27.7 pg (27.0-33.0); MONO # 0.5 K/mm3 (0.0-0.8); MONO % 6.6 % (0.0-5.0); NEUTROPHILS # 2.9 K/mm3 (1.8-7.7); NEUTROPHILS % 43.9 % (36.0-66.0); PLATELET COUNT, AUTOMATED 245 k/mm3 (150-450); RED CELL DISTRIBUTION WIDTH 13.2 % (11.5-14.5); WHITE BLOOD COUNT 6.7 K/mm3 (4.0-10.0)
[2016-09-05 15:15] LABS: ALBUMIN 3.7 GM/DL (3.2-5.2); ALBUMIN/GLOBULIN RATIO 1.16 (1.00-1.93); ALKALINE PHOSPHATASE 67 U/L (45-117); ALT/SGPT 66 U/L (12-78); ANION GAP 10 MEQ/L (8-16); AST/SGOT 30 U/L (15-37); BILIRUBIN,DIRECT < 0.1 MG/DL (0.0-0.2); BILIRUBIN,TOTAL 0.3 MG/DL (0.2-1.0); BLOOD UREA NITROGEN 8 MG/DL (7-18); CALCIUM LEVEL 8.5 MG/DL (8.5-10.1); CARBON DIOXIDE LEVEL 25 MEQ/L (21-32); CHLORIDE LEVEL 106 MEQ/L (98-107); CREATININE FOR GFR 0.96 MG/DL (0.70-1.30); GLOMERULAR FILTRATION RATE > 60.0 (>60); GLUCOSE, FASTING 91 MG/DL (70-105); POTASSIUM SERUM 3.8 MEQ/L (3.5-5.1); SODIUM LEVEL 141 MEQ/L (136-145); TOTAL PROTEIN 6.9 GM/DL (6.4-8.2)
[2016-09-05] MEDS ORDERED: GI COCKTAIL 50ML BTL(HYOSCYAMINE/MAALOX/LIDOCAINE VISCOUS)(1:3:1) As Ordered ONE (15:34)
--- NOTE | 2016-09-05 16:25 | REP ---
Chest two views HISTORY: Chest pain Comparison: 07/26/2016 The lungs are clear. The heart is normal in size. The pulmonary vasculature is normal in appearance. The bony structure is intact. IMPRESSION: No acute disease. Signed by Eze Medellin MD 09/05/2016 04:17 P
--- NOTE | 2016-09-05 17:54 | EDDOCDS ---
Physician Documentation [facility] Name: Emanuel Del Rio Age: 26 yrs Sex: Male : 1990 Arrival Date: 09/05/2016 Time: 13:35 Bed 6 Private MD: Disposition: 09/05/16 17:26 Discharged to Home/Self Care. Impression: Chest pain, unspecified. - Condition is Stable. - Discharge Instructions: Nonspecific Chest Pain, Nausea and Vomiting. - Prescriptions for ZOFRAN ODT 4 mg - dissolve 1 tablet by ORAL route 4 times per day As needed do not chew, do not swallow whole; 10 tablet. - Medication Reconciliation, Local Pharmacy Hours form. - Follow up: [facility]; When: 1 - 2 days; Reason: Recheck today's complaints. - Problem is new. - Symptoms are resolved. - Notes: You were seen in the ED for chest pain after vomiting. Bloodwork along with EKG of the heart and chest Xray showed no acute findings. As you are feeling better you may return home. You may take Tylenol and/or Ibuprofen with foods as needed for pain. Call your primary doctor at [facility] to arrange to be seen for recheck of the chest pain this week. You may take Zofran as needed for nausea or vomiting. Return to the ED for any worsening pain, trouble breathing, fever, inability to tolerate oral foods or liquids or any other concerns. Historical: - Allergies: Bees (Swelling); benadryl IV (coughs); SULFA (SULFONAMIDES) (Rash); Trazodone; Zyrtec (Hives); - Home Meds: 1. Acidophilus Oral tab 100 million units twice a day 2. amlodipine 10 mg Oral tab nightly 3. desmopressin 0.1mg nightly 4. EpiPen 0.3 mg/0.3 mL (1:1,000) injection atIn 0.3 mL as needed 5. lamotrigine 25 mg Oral tr24 twice a day 6. Invega Sustenna 234 mg/1.5 mL intramuscular syrg 1.5 mL every 3 weeks 7. mirtazapine 30 mg oral tab nightly 8. oxybutynin chloride 5 mg Oral tab 1 tab 3 times per day 9. pantoprazole 40 mg oral TbEC 1 tab once daily 10. potassium chloride 10 mEq Oral cpER 1 cap 3 times per day 11. Prozac 40 mg Oral cap 1 cap once daily - PMHx: Cholelithiasis; Depression; GERD; Hypertension; MRSA; Schizo-Affective Disorder; urinary difficulties; - PSHx: Arthroscopy, Knee- Right; bladder botox; - Social history: Smoking status: Patient states was never smoker of tobacco. No barriers to communication noted, The patient speaks fluent Niuean, Speaks appropriately for age. - Family history: Not pertinent. - : The pt / caregiver states he / she is not on anticoagulants. Home medication list is obtained from the patient. - Exposure Risk Screening:: None identified. Vital Signs: 09/05 13:43 BP 126 / 76; Pulse 115; Resp 22; Temp 97.9(O); Pulse Ox 96% on R/A; Weight 140.61 kg / nb2 309.99 lbs (R); Height 5 ft. 8 in. (172.72 cm) (R); Pain 7/10; 15:28 BP 129 / 77 (auto/); kcs 15:28 Pulse 82 MON; Pulse Ox 95% ; kcs 17:51 BP 122 / 63; Pulse 77; Resp 20; Temp 98.0(O); Pulse Ox 98% on R/A; Pain 5/10; kcs 13:43 Body Mass Index 47.13 (140.61 kg, 172.72 cm) nb2 MDM: 13:38 ECG WITH READING ER PHYS+CARDIAG ordered. EDMS 14:49 Plant Associate/Pulse Ox/q 30 min VS ordered. br1 14:49 IV Saline Lock ordered. br1 14:49 Rhythm Strip to chart ordered. br1 14:49 Undress patient appropriately for examination ordered. br1 14:49 Ondansetron 4 mg IVP once ordered. br1 14:50 Basic Metabolic Profile Ordered. EDMS 14:50 CBC with Diff Ordered. EDMS 14:50 Cardiac Injury Profile Ordered. EDMS 14:50 Troponin Ordered. EDMS 14:50 Liver Profile Ordered. EDMS 14:50 Lipase Ordered. EDMS 14:51 Chest, 2 View (pa\E\lat) Ordered. EDMS 15:27 CBC with Diff Reviewed. br1 15:27 Basic Metabolic Profile Reviewed. br1 15:27 Cardiac Injury Profile Reviewed. br1 15:27 Troponin Reviewed. br1 15:27 Liver Profile Reviewed. br1 15:27 Lipase Reviewed. br1 15:29 GI Cocktail - (Alum-Mag Hydroxide-Simeth 30 ml, Lidocaine 10 ml, Hyoscyamine 10 ml) PO br1 once; Pre-mixed 50mL unit dose ordered. 15:56 Financial registration complete. jinny 16:02 [facility] Payment Agreement was scanned into [employer] and attached to record. gjb Administered Medications: 15:08 Drug: Ondansetron 4 mg [ondansetron HCl 2 mg/mL intravenous solution (2 mL)] Route: ld5 IVP; Site: left antecubital; 15:37 Follow up: Response: Nausea is decreased [facility] 15:37 Drug: GI Cocktail - (Alum-Mag Hydroxide-Simeth Suspension 225 mg-200 mg-25 mg/5 mL 30 srm ml, Lidocaine Liquid 2 % 10 ml, Hyoscyamine Liquid 10 ml) Route: PO; Signatures: Dispatcher [employer] EDSaloni Posada RN RN [facility] Nancy Rudolph RN RN [facility] Con Cespedes MD MD br1 Rox Chairezb Adela Castro RN ld5 The chart was reviewed and I authenticate all verbal orders and agree with the evaluation and treatment provided.Attachments: 16:02 [facility] Payment Agreement jinny MTDD
--- NOTE | 2016-09-05 17:55 | EDDOCDS ---
Nurse's Notes [facility] Name: Emanuel Del Rio Age: 26 yrs Sex: Male : 1990 Arrival Date: 09/05/2016 Time: 13:35 Bed 6 Private MD: Diagnosis: Chest pain, unspecified Presentation: 09/05 13:38 Presenting complaint: Patient states: vomiting for past 4 days. chest pain midsternal srm start- does not radiate at 0100. today . also RLQ pain for 8 hours. 324 asa and 1 nitro received by EMS. 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 Adult Sepsis Screening: The patient does not have new or worsening altered mentation. Patient's respiratory rate is less than 22. Systolic blood pressure is greater than 100. Patient has a qSOFA score of 0- Negative Sepsis Screen. Status: Patient is not a service now developer or dependent. Transition of care: patient was not received from another setting of care. Care prior to arrival: Medications administered prior to arrival: ASA, and 1 nitro IV initiated. Saline lock initiated. Glucose check. 18 SL in [facility] fsbs 104. 13:38 Acuity: YAMEL Level 3 srm 13:38 Method Of Arrival: Ambulance srm 13:43 Suicide/Homicide risk assessment- the patient denies having any suicidal and/or srm homicidal ideations and does not present with any other emotional, behavioral or mental health complaints. Triage Assessment: 13:43 General: Appears in no apparent distress, Behavior is appropriate for age, cooperative. srm Pain: Location: lower abd pain Pain currently is 7 out of 10 on a pain scale. HIV screening NA for this visit Offered previously. Cardiovascular: Chest pain is described as Pain is 5 out of 10 on a pain scale. radiates Does not radiate. episodes are continuous began 12.5 hours ago. Historical: - Allergies: Bees (Swelling); benadryl IV (coughs); SULFA (SULFONAMIDES) (Rash); Trazodone; Zyrtec (Hives); - Home Meds: 1. Acidophilus Oral tab 100 million units twice a day 2. amlodipine 10 mg Oral tab nightly 3. desmopressin 0.1mg nightly 4. EpiPen 0.3 mg/0.3 mL (1:1,000) injection atIn 0.3 mL as needed 5. lamotrigine 25 mg Oral tr24 twice a day 6. Invega Sustenna 234 mg/1.5 mL intramuscular syrg 1.5 mL every 3 weeks 7. mirtazapine 30 mg oral tab nightly 8. oxybutynin chloride 5 mg Oral tab 1 tab 3 times per day 9. pantoprazole 40 mg oral TbEC 1 tab once daily 10. potassium chloride 10 mEq Oral cpER 1 cap 3 times per day 11. Prozac 40 mg Oral cap 1 cap once daily - PMHx: Cholelithiasis; Depression; GERD; Hypertension; MRSA; Schizo-Affective Disorder; urinary difficulties; - PSHx: Arthroscopy, Knee- Right; bladder botox; - Social history: Smoking status: Patient states was never smoker of tobacco. No barriers to communication noted, The patient speaks fluent Lao, Speaks appropriately for age. - Family history: Not pertinent. - : The pt / caregiver states he / she is not on anticoagulants. Home medication list is obtained from the patient. - Exposure Risk Screening:: None identified. Screenin:51 Screening information is obtained from the patient. Fall risk: No risks identified. kcs Assistance ADL's: requires no assistance with activities of daily living. Abuse/DV Screen: The patient / caregiver reports he/she is: not in a situation that causes fear, pain or injury. Nutritional screening: No deficits noted. Advance Directives: Currently, there is no health care proxy. There is no living will. home support is adequate. Assessment: 15:08 General: Pt returned from xray. Tolerated well. Pt medicated per orders. Call rajput ld5 within reach. Will continue to monitor. 15:37 Reassessment: Patient appears in no apparent distress at this time. Cardiovascular: srm Rhythm is sinus rhythm. Respiratory: Airway is patent Respiratory effort is even, unlabored. 16:44 General: Appears in no apparent distress, Behavior is appropriate for age, cooperative, srm states chest pain remains the same but other pham stomach feels better. vs stable. Neurological: No deficits noted. GI: Abdomen is obese, Bowel sounds present X 4 quads. Abd is soft and non tender X 4 quads. Derm: No deficits noted. 17:51 Reassessment: Patient states he is feeling better and is ready for discharge.. General: kcs Appears comfortable, obese, unkempt, well developed, well nourished, Behavior is cooperative, pleasant. Pain: Location: chest Pain currently is 5 out of 10 on a pain scale. Neurological: Level of Consciousness is awake, alert. Cardiovascular: Rhythm is sinus rhythm No ectopy. Respiratory: Airway is patent Respiratory effort is even, unlabored, Respiratory pattern is regular, symmetrical. Derm: Skin is intact, is healthy with good turgor, Skin is dry, Skin is normal. Vital Signs: 13:43 BP 126 / 76; Pulse 115; Resp 22; Temp 97.9(O); Pulse Ox 96% on R/A; Weight 140.61 kg nb2 (R); Height 5 ft. 8 in. (172.72 cm) (R); Pain 7/10; 15:28 BP 129 / 77 (auto/); kcs 15:28 Pulse 82 MON; Pulse Ox 95% ; kcs 17:51 BP 122 / 63; Pulse 77; Resp 20; Temp 98.0(O); Pulse Ox 98% on R/A; Pain 5/10; kcs 13:43 Body Mass Index 47.13 (140.61 kg, 172.72 cm) nb2 Vitals: 13:43 Log In Time N/A - ambulance arrival. nb2 ED Course: 13:36 Patient visited by Allison Kong, Casing Finisher And Stuffer. deg 13:36 Patient moved to Waiting deg 13:37 Patient moved to 6 srm 13:37 Patient moved to Waiting deg 13:37 Patient moved to 6 deg 13:41 Triage Initiated srm 13:43 Placed in gown. Bed in low position. Call light in reach. Side rails up X2. Cardiac nb2 monitor on. Pulse ox on. NIBP on. 13:44 Patient visited by Drea Martin. nb2 13:45 The patient / caregiver is instructed regarding the plan of care and ED course. srm 13:45 Maintain field IV. Dressing intact. Good blood return noted. Site clean & dry. srm 13:46 Patient visited by Drea Martin. nb2 13:51 Patient visited by Drea Martin. nb2 13:51 EKG done. (by ED staff). Reviewed by Ángel Seth MD. nb2 14:33 Con Cespedes MD is Attending Physician. br1 14:48 Patient visited by Con Cespedes MD. br1 15:08 Patient visited by Adela Castro RN. ld5 15:37 Patient visited by Nancy Rudolph RN. srm 16:02 [facility] Payment Agreement was scanned into [employer] and attached to record. gjb 16:45 Patient visited by Nancy Rudolph RN. srm 17:07 Chest, 2 View (pa\E\lat) Returned. EDMS 17:26 [facility] is Referral Physician. br1 17:51 Discontinued lock intact, bleeding controlled, pressure dressing applied, No kcs redness/swelling at site. No procedures done that require assistance. Administered Medications: 15:08 Drug: Ondansetron 4 mg [ondansetron HCl 2 mg/mL intravenous solution (2 mL)] Route: ld5 IVP; Site: left antecubital; 15:37 Follow up: Response: Nausea is decreased srm 15:37 Drug: GI Cocktail - (Alum-Mag Hydroxide-Simeth Suspension 225 mg-200 mg-25 mg/5 mL 30 srm ml, Lidocaine Liquid 2 % 10 ml, Hyoscyamine Liquid 10 ml) Route: PO; Order Results: Lab Order: Basic Metabolic Profile; SPEC'M 09/05/16 13:50 Test: GLUCOSE, FASTING; Value: 91; Range: 70-105; Units: MG/DL; Status: F Test: BLOOD UREA NITROGEN; Value: 8; Range: 7-18; Units: MG/DL; Status: F Test: CREATININE FOR GFR; Value: 0.96; Range: 0.70-1.30; Units: MG/DL; Status: F Test: GLOMERULAR FILTRATION RATE; Value: > 60.0; Range: >60; Status: F Test: SODIUM LEVEL; Value: 141; Range: 136-145; Units: MEQ/L; Status: F Test: POTASSIUM SERUM; Value: 3.8; Range: 3.5-5.1; Units: MEQ/L; Status: F Test: CHLORIDE LEVEL; Value: 106; Range: 98-107; Units: MEQ/L; Status: F Test: CARBON DIOXIDE LEVEL; Value: 25; Range: 21-32; Units: MEQ/L; Status: F Test: ANION GAP; Value: 10; Range: 8-16; Units: MEQ/L; Status: F Test: CALCIUM LEVEL; Value: 8.5; Range: 8.5-10.1; Units: MG/DL; Status: F Test Note: ; Units are mL/min/1.73 m2 Chronic Kidney Disease Staging per NKF: Stage I & II GFR >=60 Normal to Mildly Decreased Stage III GFR 30-59 Moderately Decreased Stage IV GFR 15-29 Severely Decreased Stage V GFR <15 Very Little GFR Left ESRD GFR <15 on TOOLS ADMINISTRATOR Lab Order: CBC with Diff; SPEC'M 09/05/16 13:50 Test: WHITE BLOOD COUNT; Value: 6.7; Range: 4.0-10.0; Units: K/mm3; Status: F Test: RED BLOOD COUNT; Value: 5.47; Range: 4.30-6.10; Units: M/mm3; Status: F Test: HEMOGLOBIN; Value: 15.2; Range: 14.0-18.0; Units: g/dl; Status: F Test: HEMATOCRIT; Value: 46.0; Range: 42.0-52.0; Units: %; Status: F Test: MEAN CORPUSCULAR VOLUME; Value: 84.0; Range: 80.0-96.0; Units: fl; Status: F Test: MEAN CORPUSCULAR HEMOGLOBIN; Value: 27.7; Range: 27.0-33.0; Units: pg; Status: F Test: MEAN CORPUSCULAR HGB CONC; Value: 33.0; Range: 32.0-36.5; Units: g/dl; Status: F Test: RED CELL DISTRIBUTION WIDTH; Value: 13.2; Range: 11.5-14.5; Units: %; Status: F Test: PLATELET COUNT, AUTOMATED; Value: 245; Range: 150-450; Units: k/mm3; Status: F Test: NEUTROPHILS %; Value: 43.9; Range: 36.0-66.0; Units: %; Status: F Test: LYMPH %; Value: 43.8; Range: 24.0-44.0; Units: %; Status: F Test: MONO %; Value: 6.6; Range: 0.0-5.0; Abnormal: Above high normal; Units: %; Status: F Test: EOS %; Value: 1.0; Range: 0.0-3.0; Units: %; Status: F Test: BASO %; Value: 0.6; Range: 0.0-1.0; Units: %; Status: F Test: LARGE UNSTAINED CELL %; Value: 4.0; Range: 0.0-4.0; Units: %; Status: F Test: NEUTROPHILS #; Value: 2.9; Range: 1.8-7.7; Units: K/mm3; Status: F Test: LYMPH #; Value: 2.9; Range: 1.5-6.5; Units: K/mm3; Status: F Test: MONO #; Value: 0.5; Range: 0.0-0.8; Units: K/mm3; Status: F Test: EOS #; Value: 0.1; Range: 0.0-0.50; Units: K/mm3; Status: F Test: BASO #; Value: 0.0; Range: 0.0-0.2; Units: K/mm3; Status: F Test: LARGE UNSTAINED CELL #; Value: 0.3; Range: 0.0-0.4; Units: K/mm3; Status: F Lab Order: Cardiac Injury Profile; [facility] 09/05/16 13:50 Test: CPK CREATINE PHOSPHOKINASE; Value: 184; Range: 39-308; Units: U/L; Status: F Test: CK-MB VALUE MASS; Value: 1.5; Range: 0.0-3.6; Units: NG/ML; Status: F Test: MB/CK RELATIVE INDEX; Value: 0.81; Range: < OR =4; Status: F Test Note: ; DIAGNOSIS CRITERIA MMB ng/ml Relative Index (RI) NON-AMI < or = 5 N/A MARY ZONE > 5 < or = 4 AMI > 5 > 4 Lab Order: Troponin; SPEC'M 09/05/16 13:50 Test: TROPONIN I; Value: < 0.02; Range: < 0.10; Units: NG/ML; Status: F Test Note: ; Troponin I Reference Interval for [employer] LOCI: 99th Percentile= 0.00-0.045 ng/ml Risk Stratification: <= 0.10 ng/ml Decreased Risk for Adverse Clinical Events. 0.10-1.50 ng/ml Increased Risk for Adverse Clinical Events. Evaluation of additional criterion and/or repeat testing in 2-6 hours is suggested to rule out myocardial damage. >= 1.50 ng/ml Indicative of Myocardial Injury. Lab Order: Liver Profile; SPEC'M 09/05/16 13:50 Test: AST/SGOT; Value: 30; Range: 15-37; Units: U/L; Status: F Test: ALT/SGPT; Value: 66; Range: 12-78; Units: U/L; Status: F Test: ALKALINE PHOSPHATASE; Value: 67; Range: 45-117; Units: U/L; Status: F Test: BILIRUBIN,TOTAL; Value: 0.3; Range: 0.2-1.0; Units: MG/DL; Status: F Test: BILIRUBIN,DIRECT; Value: < 0.1; Range: 0.0-0.2; Units: MG/DL; Status: F Test: TOTAL PROTEIN; Value: 6.9; Range: 6.4-8.2; Units: GM/DL; Status: F Test: ALBUMIN; Value: 3.7; Range: 3.2-5.2; Units: GM/DL; Status: F Test: ALBUMIN/GLOBULIN RATIO; Value: 1.16; Range: 1.00-1.93; Status: F Lab Order: Lipase; SPEC'M 09/05/16 13:50 Test: LIPASE; Value: 107; Range: 73-393; Units: U/L; Status: F Radiology Order: Chest, 2 View (pa\E\lat) Test: Chest, 2 View (pa\E\lat) REASON FOR EXAMINATION: Chest Pain; Chest two views; ; HISTORY: Chest pain; ; Comparison: 07/26/2016; ; The lungs are clear. The heart is normal in size. The pulmonary vasculature is; normal in appearance. The bony structure is intact.; ; IMPRESSION: No acute disease.; ; ; Signed by; Eze Medellin MD 09/05/2016 04:17 P; Outcome: 17:26 Discharge ordered by Provider. br1 17:51 Discharge Assessment: Patient awake, alert and oriented x 3. No cognitive and/or kcs functional deficits noted. Patient verbalized understanding of disposition instructions. Patient awake and alert. patient administered narcotics - no. The following High Risk Discharge criteria are identified: None. Discharged to home ambulatory. Condition: stable. Discharge instructions given to patient, Instructed on discharge instructions, follow up and referral plans. medication usage, Demonstrated understanding of instructions, medications, Pt was receptive of discharge instructions/ teaching. No special radiology studies were completed. Property sent home with patient. 17:54 Patient left the ED. kcs Signatures: Dispatcher [employer] EDSaloni Posada, RN RN Allison Acevedo, Casing Finisher And Stuffer Unit deg Nancy Rudolph RN RN Con Sy MD MD br1 Adela Castro RN RN ld5 Rox Chairez Nicole nb2 MTDD
--- NOTE | 2016-09-07 09:53 | ECGEPIP ---
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
--- NOTE | 2016-09-07 18:54 | EDDOCDS ---
Physician Documentation [facility] Name: Emanuel Del Rio Age: 26 yrs Sex: Male : 1990 Arrival Date: 09/05/2016 Time: 13:35 Bed 6 Private MD: Disposition: 09/05/16 17:26 Discharged to Home/Self Care. Impression: Chest pain, unspecified. - Condition is Stable. - Discharge Instructions: Nonspecific Chest Pain, Nausea and Vomiting. - Prescriptions for ZOFRAN ODT 4 mg - dissolve 1 tablet by ORAL route 4 times per day As needed do not chew, do not swallow whole; 10 tablet. - Medication Reconciliation, Local Pharmacy Hours form. - Follow up: [facility]; When: 1 - 2 days; Reason: Recheck today's complaints. - Problem is new. - Symptoms are resolved. - Notes: You were seen in the ED for chest pain after vomiting. Bloodwork along with EKG of the heart and chest Xray showed no acute findings. As you are feeling better you may return home. You may take Tylenol and/or Ibuprofen with foods as needed for pain. Call your primary doctor at [facility] to arrange to be seen for recheck of the chest pain this week. You may take Zofran as needed for nausea or vomiting. Return to the ED for any worsening pain, trouble breathing, fever, inability to tolerate oral foods or liquids or any other concerns. Historical: - Allergies: Bees (Swelling); benadryl IV (coughs); SULFA (SULFONAMIDES) (Rash); Trazodone; Zyrtec (Hives); - Home Meds: 1. Acidophilus Oral tab 100 million units twice a day 2. amlodipine 10 mg Oral tab nightly 3. desmopressin 0.1mg nightly 4. EpiPen 0.3 mg/0.3 mL (1:1,000) injection atIn 0.3 mL as needed 5. lamotrigine 25 mg Oral tr24 twice a day 6. Invega Sustenna 234 mg/1.5 mL intramuscular syrg 1.5 mL every 3 weeks 7. mirtazapine 30 mg oral tab nightly 8. oxybutynin chloride 5 mg Oral tab 1 tab 3 times per day 9. pantoprazole 40 mg oral TbEC 1 tab once daily 10. potassium chloride 10 mEq Oral cpER 1 cap 3 times per day 11. Prozac 40 mg Oral cap 1 cap once daily - PMHx: Cholelithiasis; Depression; GERD; Hypertension; MRSA; Schizo-Affective Disorder; urinary difficulties; - PSHx: Arthroscopy, Knee- Right; bladder botox; - Social history: Smoking status: Patient states was never smoker of tobacco. No barriers to communication noted, The patient speaks fluent Ukrainian, Speaks appropriately for age. - Family history: Not pertinent. - : The pt / caregiver states he / she is not on anticoagulants. Home medication list is obtained from the patient. - Exposure Risk Screening:: None identified. Vital Signs: 09/05 13:43 BP 126 / 76; Pulse 115; Resp 22; Temp 97.9(O); Pulse Ox 96% on R/A; Weight 140.61 kg / nb2 309.99 lbs (R); Height 5 ft. 8 in. (172.72 cm) (R); Pain 7/10; 15:28 BP 129 / 77 (auto/); kcs 15:28 Pulse 82 MON; Pulse Ox 95% ; kcs 17:51 BP 122 / 63; Pulse 77; Resp 20; Temp 98.0(O); Pulse Ox 98% on R/A; Pain 5/10; kcs 13:43 Body Mass Index 47.13 (140.61 kg, 172.72 cm) nb2 MDM: 13:38 ECG WITH READING ER PHYS+CARDIAG ordered. EDMS 14:49 Herbicide Sprayer/Pulse Ox/q 30 min VS ordered. br1 14:49 IV Saline Lock ordered. br1 14:49 Rhythm Strip to chart ordered. br1 14:49 Undress patient appropriately for examination ordered. br1 14:49 Ondansetron 4 mg IVP once ordered. br1 14:50 Basic Metabolic Profile Ordered. EDMS 14:50 CBC with Diff Ordered. EDMS 14:50 Cardiac Injury Profile Ordered. EDMS 14:50 Troponin Ordered. EDMS 14:50 Liver Profile Ordered. EDMS 14:50 Lipase Ordered. EDMS 14:51 Chest, 2 View (pa\E\lat) Ordered. EDMS 15:27 CBC with Diff Reviewed. br1 15:27 Basic Metabolic Profile Reviewed. br1 15:27 Cardiac Injury Profile Reviewed. br1 15:27 Troponin Reviewed. br1 15:27 Liver Profile Reviewed. br1 15:27 Lipase Reviewed. br1 15:29 GI Cocktail - (Alum-Mag Hydroxide-Simeth 30 ml, Lidocaine 10 ml, Hyoscyamine 10 ml) PO br1 once; Pre-mixed 50mL unit dose ordered. 15:56 Financial registration complete. jinny 16:02 [facility] Payment Agreement was scanned into [employer] and attached to record. gjb Administered Medications: 15:08 Drug: Ondansetron 4 mg [ondansetron HCl 2 mg/mL intravenous solution (2 mL)] Route: ld5 IVP; Site: left antecubital; 15:37 Follow up: Response: Nausea is decreased [facility] 15:37 Drug: GI Cocktail - (Alum-Mag Hydroxide-Simeth Suspension 225 mg-200 mg-25 mg/5 mL 30 srm ml, Lidocaine Liquid 2 % 10 ml, Hyoscyamine Liquid 10 ml) Route: PO; Signatures: Dispatcher [employer] EDSaloni Posada RN RN [facility] Nancy Rudolph RN RN [facility] Con Cespedes MD MD br1 Rox Chairezb Adela Castro RN ld5 The chart was reviewed and I authenticate all verbal orders and agree with the evaluation and treatment provided.Attachments: 16:02 [facility] Payment Agreement jinny Chart Complete MTDD
--- NOTE | 2016-09-07 18:54 | EDDOCDS ---
Physician Documentation [facility] Name: Emanuel Del Rio Age: 26 yrs Sex: Male : 1990 Arrival Date: 09/05/2016 Time: 13:35 Bed 6 Private MD: Disposition: 09/05/16 17:26 Discharged to Home/Self Care. Impression: Chest pain, unspecified. - Condition is Stable. - Discharge Instructions: Nonspecific Chest Pain, Nausea and Vomiting. - Prescriptions for ZOFRAN ODT 4 mg - dissolve 1 tablet by ORAL route 4 times per day As needed do not chew, do not swallow whole; 10 tablet. - Medication Reconciliation, Local Pharmacy Hours form. - Follow up: [facility]; When: 1 - 2 days; Reason: Recheck today's complaints. - Problem is new. - Symptoms are resolved. - Notes: You were seen in the ED for chest pain after vomiting. Bloodwork along with EKG of the heart and chest Xray showed no acute findings. As you are feeling better you may return home. You may take Tylenol and/or Ibuprofen with foods as needed for pain. Call your primary doctor at [facility] to arrange to be seen for recheck of the chest pain this week. You may take Zofran as needed for nausea or vomiting. Return to the ED for any worsening pain, trouble breathing, fever, inability to tolerate oral foods or liquids or any other concerns. Historical: - Allergies: Bees (Swelling); benadryl IV (coughs); SULFA (SULFONAMIDES) (Rash); Trazodone; Zyrtec (Hives); - Home Meds: 1. Acidophilus Oral tab 100 million units twice a day 2. amlodipine 10 mg Oral tab nightly 3. desmopressin 0.1mg nightly 4. EpiPen 0.3 mg/0.3 mL (1:1,000) injection atIn 0.3 mL as needed 5. lamotrigine 25 mg Oral tr24 twice a day 6. Invega Sustenna 234 mg/1.5 mL intramuscular syrg 1.5 mL every 3 weeks 7. mirtazapine 30 mg oral tab nightly 8. oxybutynin chloride 5 mg Oral tab 1 tab 3 times per day 9. pantoprazole 40 mg oral TbEC 1 tab once daily 10. potassium chloride 10 mEq Oral cpER 1 cap 3 times per day 11. Prozac 40 mg Oral cap 1 cap once daily - PMHx: Cholelithiasis; Depression; GERD; Hypertension; MRSA; Schizo-Affective Disorder; urinary difficulties; - PSHx: Arthroscopy, Knee- Right; bladder botox; - Social history: Smoking status: Patient states was never smoker of tobacco. No barriers to communication noted, The patient speaks fluent [place], Speaks appropriately for age. - Family history: Not pertinent. - : The pt / caregiver states he / she is not on anticoagulants. Home medication list is obtained from the patient. - Exposure Risk Screening:: None identified. Vital Signs: 09/05 13:43 BP 126 / 76; Pulse 115; Resp 22; Temp 97.9(O); Pulse Ox 96% on R/A; Weight 140.61 kg / nb2 309.99 lbs (R); Height 5 ft. 8 in. (172.72 cm) (R); Pain 7/10; 15:28 BP 129 / 77 (auto/); kcs 15:28 Pulse 82 MON; Pulse Ox 95% ; kcs 17:51 BP 122 / 63; Pulse 77; Resp 20; Temp 98.0(O); Pulse Ox 98% on R/A; Pain 5/10; kcs 13:43 Body Mass Index 47.13 (140.61 kg, 172.72 cm) nb2 MDM: 13:38 ECG WITH READING ER PHYS+CARDIAG ordered. EDMS 14:49 Tier Lift Operator/Pulse Ox/q 30 min VS ordered. br1 14:49 IV Saline Lock ordered. br1 14:49 Rhythm Strip to chart ordered. br1 14:49 Undress patient appropriately for examination ordered. br1 14:49 Ondansetron 4 mg IVP once ordered. br1 14:50 Basic Metabolic Profile Ordered. EDMS 14:50 CBC with Diff Ordered. EDMS 14:50 Cardiac Injury Profile Ordered. EDMS 14:50 Troponin Ordered. EDMS 14:50 Liver Profile Ordered. EDMS 14:50 Lipase Ordered. EDMS 14:51 Chest, 2 View (pa\E\lat) Ordered. EDMS 15:27 CBC with Diff Reviewed. br1 15:27 Basic Metabolic Profile Reviewed. br1 15:27 Cardiac Injury Profile Reviewed. br1 15:27 Troponin Reviewed. br1 15:27 Liver Profile Reviewed. br1 15:27 Lipase Reviewed. br1 15:29 GI Cocktail - (Alum-Mag Hydroxide-Simeth 30 ml, Lidocaine 10 ml, Hyoscyamine 10 ml) PO br1 once; Pre-mixed 50mL unit dose ordered. 15:56 Financial registration complete. jinny 16:02 [facility] Payment Agreement was scanned into [email or web address] and attached to record. gjb Administered Medications: 15:08 Drug: Ondansetron 4 mg [ondansetron HCl 2 mg/mL intravenous solution (2 mL)] Route: ld5 IVP; Site: left antecubital; 15:37 Follow up: Response: Nausea is decreased [facility] 15:37 Drug: GI Cocktail - (Alum-Mag Hydroxide-Simeth Suspension 225 mg-200 mg-25 mg/5 mL 30 srm ml, Lidocaine Liquid 2 % 10 ml, Hyoscyamine Liquid 10 ml) Route: PO; Signatures: Dispatcher [employer] EDSaloni Posada RN RN [facility] Nancy Rudolph RN RN [facility] Con Cespedes MD MD br1 Rox Chairezb Adela Castro RN ld5 The chart was reviewed and I authenticate all verbal orders and agree with the evaluation and treatment provided.Attachments: 16:02 [facility] Payment Agreement jinny Chart Complete MTDD
--- NOTE | 2016-09-07 18:56 | EDDOCDS ---
Nurse's Notes [facility] Name: Emanuel Del Rio Age: 26 yrs Sex: Male : 1990 Arrival Date: 09/05/2016 Time: 13:35 Bed 6 Private MD: Diagnosis: Chest pain, unspecified Presentation: 09/05 13:38 Presenting complaint: Patient states: vomiting for past 4 days. chest pain midsternal srm start- does not radiate at 0100. today . also RLQ pain for 8 hours. 324 asa and 1 nitro received by EMS. 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 Adult Sepsis Screening: The patient does not have new or worsening altered mentation. Patient's respiratory rate is less than 22. Systolic blood pressure is greater than 100. Patient has a qSOFA score of 0- Negative Sepsis Screen. Status: Patient is not a ambulatory services representative or dependent. Transition of care: patient was not received from another setting of care. Care prior to arrival: Medications administered prior to arrival: ASA, and 1 nitro IV initiated. Saline lock initiated. Glucose check. 18 SL in [facility] fsbs 104. 13:38 Acuity: YAMEL Level 3 srm 13:38 Method Of Arrival: Ambulance srm 13:43 Suicide/Homicide risk assessment- the patient denies having any suicidal and/or srm homicidal ideations and does not present with any other emotional, behavioral or mental health complaints. Triage Assessment: 13:43 General: Appears in no apparent distress, Behavior is appropriate for age, cooperative. srm Pain: Location: lower abd pain Pain currently is 7 out of 10 on a pain scale. HIV screening NA for this visit Offered previously. Cardiovascular: Chest pain is described as Pain is 5 out of 10 on a pain scale. radiates Does not radiate. episodes are continuous began 12.5 hours ago. Historical: - Allergies: Bees (Swelling); benadryl IV (coughs); SULFA (SULFONAMIDES) (Rash); Trazodone; Zyrtec (Hives); - Home Meds: 1. Acidophilus Oral tab 100 million units twice a day 2. amlodipine 10 mg Oral tab nightly 3. desmopressin 0.1mg nightly 4. EpiPen 0.3 mg/0.3 mL (1:1,000) injection atIn 0.3 mL as needed 5. lamotrigine 25 mg Oral tr24 twice a day 6. Invega Sustenna 234 mg/1.5 mL intramuscular syrg 1.5 mL every 3 weeks 7. mirtazapine 30 mg oral tab nightly 8. oxybutynin chloride 5 mg Oral tab 1 tab 3 times per day 9. pantoprazole 40 mg oral TbEC 1 tab once daily 10. potassium chloride 10 mEq Oral cpER 1 cap 3 times per day 11. Prozac 40 mg Oral cap 1 cap once daily - PMHx: Cholelithiasis; Depression; GERD; Hypertension; MRSA; Schizo-Affective Disorder; urinary difficulties; - PSHx: Arthroscopy, Knee- Right; bladder botox; - Social history: Smoking status: Patient states was never smoker of tobacco. No barriers to communication noted, The patient speaks fluent Macedonian, Speaks appropriately for age. - Family history: Not pertinent. - : The pt / caregiver states he / she is not on anticoagulants. Home medication list is obtained from the patient. - Exposure Risk Screening:: None identified. Screenin:51 Screening information is obtained from the patient. Fall risk: No risks identified. kcs Assistance ADL's: requires no assistance with activities of daily living. Abuse/DV Screen: The patient / caregiver reports he/she is: not in a situation that causes fear, pain or injury. Nutritional screening: No deficits noted. Advance Directives: Currently, there is no health care proxy. There is no living will. home support is adequate. Assessment: 15:08 General: Pt returned from xray. Tolerated well. Pt medicated per orders. Call rajput ld5 within reach. Will continue to monitor. 15:37 Reassessment: Patient appears in no apparent distress at this time. Cardiovascular: srm Rhythm is sinus rhythm. Respiratory: Airway is patent Respiratory effort is even, unlabored. 16:44 General: Appears in no apparent distress, Behavior is appropriate for age, cooperative, srm states chest pain remains the same but other pham stomach feels better. vs stable. Neurological: No deficits noted. GI: Abdomen is obese, Bowel sounds present X 4 quads. Abd is soft and non tender X 4 quads. Derm: No deficits noted. 17:51 Reassessment: Patient states he is feeling better and is ready for discharge.. General: kcs Appears comfortable, obese, unkempt, well developed, well nourished, Behavior is cooperative, pleasant. Pain: Location: chest Pain currently is 5 out of 10 on a pain scale. Neurological: Level of Consciousness is awake, alert. Cardiovascular: Rhythm is sinus rhythm No ectopy. Respiratory: Airway is patent Respiratory effort is even, unlabored, Respiratory pattern is regular, symmetrical. Derm: Skin is intact, is healthy with good turgor, Skin is dry, Skin is normal. Vital Signs: 13:43 BP 126 / 76; Pulse 115; Resp 22; Temp 97.9(O); Pulse Ox 96% on R/A; Weight 140.61 kg nb2 (R); Height 5 ft. 8 in. (172.72 cm) (R); Pain 7/10; 15:28 BP 129 / 77 (auto/); kcs 15:28 Pulse 82 MON; Pulse Ox 95% ; kcs 17:51 BP 122 / 63; Pulse 77; Resp 20; Temp 98.0(O); Pulse Ox 98% on R/A; Pain 5/10; kcs 13:43 Body Mass Index 47.13 (140.61 kg, 172.72 cm) nb2 Vitals: 13:43 Log In Time N/A - ambulance arrival. nb2 ED Course: 13:36 Patient visited by Allison Kong, Manhole Stripper. deg 13:36 Patient moved to Waiting deg 13:37 Patient moved to 6 srm 13:37 Patient moved to Waiting deg 13:37 Patient moved to 6 deg 13:41 Triage Initiated srm 13:43 Placed in gown. Bed in low position. Call light in reach. Side rails up X2. Cardiac nb2 monitor on. Pulse ox on. NIBP on. 13:44 Patient visited by Drea Martin. nb2 13:45 The patient / caregiver is instructed regarding the plan of care and ED course. srm 13:45 Maintain field IV. Dressing intact. Good blood return noted. Site clean & dry. srm 13:46 Patient visited by Drea Martin. nb2 13:51 Patient visited by Drea Martin. nb2 13:51 EKG done. (by ED staff). Reviewed by Ángel Seth MD. nb2 14:33 Con Cespedes MD is Attending Physician. br1 14:48 Patient visited by Con Cespedes MD. br1 15:08 Patient visited by Adela Castro RN. ld5 15:37 Patient visited by Nancy Rudolph RN. srm 16:02 COUNT INCLUDES THE [facility] Payment Agreement was scanned into [employer] and attached to record. gjb 16:45 Patient visited by Nancy Rudolph RN. srm 17:07 Chest, 2 View (pa\E\lat) Returned. EDMS 17:26 [facility] is Referral Physician. br1 17:51 Discontinued lock intact, bleeding controlled, pressure dressing applied, No kcs redness/swelling at site. No procedures done that require assistance. 09/07 10:05 EKG-ADULT Returned. EDMS Administered Medications: 09/05 15:08 Drug: Ondansetron 4 mg [ondansetron HCl 2 mg/mL intravenous solution (2 mL)] Route: ld5 IVP; Site: left antecubital; 15:37 Follow up: Response: Nausea is decreased srm 15:37 Drug: GI Cocktail - (Alum-Mag Hydroxide-Simeth Suspension 225 mg-200 mg-25 mg/5 mL 30 srm ml, Lidocaine Liquid 2 % 10 ml, Hyoscyamine Liquid 10 ml) Route: PO; Order Results: Lab Order: Basic Metabolic Profile; SPEC'M 09/05/16 13:50 Test: GLUCOSE, FASTING; Value: 91; Range: 70-105; Units: MG/DL; Status: F Test: BLOOD UREA NITROGEN; Value: 8; Range: 7-18; Units: MG/DL; Status: F Test: CREATININE FOR GFR; Value: 0.96; Range: 0.70-1.30; Units: MG/DL; Status: F Test: GLOMERULAR FILTRATION RATE; Value: > 60.0; Range: >60; Status: F Test: SODIUM LEVEL; Value: 141; Range: 136-145; Units: MEQ/L; Status: F Test: POTASSIUM SERUM; Value: 3.8; Range: 3.5-5.1; Units: MEQ/L; Status: F Test: CHLORIDE LEVEL; Value: 106; Range: 98-107; Units: MEQ/L; Status: F Test: CARBON DIOXIDE LEVEL; Value: 25; Range: 21-32; Units: MEQ/L; Status: F Test: ANION GAP; Value: 10; Range: 8-16; Units: MEQ/L; Status: F Test: CALCIUM LEVEL; Value: 8.5; Range: 8.5-10.1; Units: MG/DL; Status: F Test Note: ; Units are mL/min/1.73 m2 Chronic Kidney Disease Staging per NKF: Stage I & II GFR >=60 Normal to Mildly Decreased Stage III GFR 30-59 Moderately Decreased Stage IV GFR 15-29 Severely Decreased Stage V GFR <15 Very Little GFR Left ESRD GFR <15 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 Lab Order: CBC with Diff; SPEC'M 09/05/16 13:50 Test: WHITE BLOOD COUNT; Value: 6.7; Range: 4.0-10.0; Units: K/mm3; Status: F Test: RED BLOOD COUNT; Value: 5.47; Range: 4.30-6.10; Units: M/mm3; Status: F Test: HEMOGLOBIN; Value: 15.2; Range: 14.0-18.0; Units: g/dl; Status: F Test: HEMATOCRIT; Value: 46.0; Range: 42.0-52.0; Units: %; Status: F Test: MEAN CORPUSCULAR VOLUME; Value: 84.0; Range: 80.0-96.0; Units: fl; Status: F Test: MEAN CORPUSCULAR HEMOGLOBIN; Value: 27.7; Range: 27.0-33.0; Units: pg; Status: F Test: MEAN CORPUSCULAR HGB CONC; Value: 33.0; Range: 32.0-36.5; Units: g/dl; Status: F Test: RED CELL DISTRIBUTION WIDTH; Value: 13.2; Range: 11.5-14.5; Units: %; Status: F Test: PLATELET COUNT, AUTOMATED; Value: 245; Range: 150-450; Units: k/mm3; Status: F Test: NEUTROPHILS %; Value: 43.9; Range: 36.0-66.0; Units: %; Status: F Test: LYMPH %; Value: 43.8; Range: 24.0-44.0; Units: %; Status: F Test: MONO %; Value: 6.6; Range: 0.0-5.0; Abnormal: Above high normal; Units: %; Status: F Test: EOS %; Value: 1.0; Range: 0.0-3.0; Units: %; Status: F Test: BASO %; Value: 0.6; Range: 0.0-1.0; Units: %; Status: F Test: LARGE UNSTAINED CELL %; Value: 4.0; Range: 0.0-4.0; Units: %; Status: F Test: NEUTROPHILS #; Value: 2.9; Range: 1.8-7.7; Units: K/mm3; Status: F Test: LYMPH #; Value: 2.9; Range: 1.5-6.5; Units: K/mm3; Status: F Test: MONO #; Value: 0.5; Range: 0.0-0.8; Units: K/mm3; Status: F Test: EOS #; Value: 0.1; Range: 0.0-0.50; Units: K/mm3; Status: F Test: BASO #; Value: 0.0; Range: 0.0-0.2; Units: K/mm3; Status: F Test: LARGE UNSTAINED CELL #; Value: 0.3; Range: 0.0-0.4; Units: K/mm3; Status: F Lab Order: Cardiac Injury Profile; SPEC'M 09/05/16 13:50 Test: CPK CREATINE PHOSPHOKINASE; Value: 184; Range: 39-308; Units: U/L; Status: F Test: CK-MB VALUE MASS; Value: 1.5; Range: 0.0-3.6; Units: NG/ML; Status: F Test: MB/CK RELATIVE INDEX; Value: 0.81; Range: < OR =4; Status: F Test Note: ; DIAGNOSIS CRITERIA MMB ng/ml Relative Index (RI) NON-AMI < or = 5 N/A MARY ZONE > 5 < or = 4 AMI > 5 > 4 Lab Order: Troponin; SPEC'M 09/05/16 13:50 Test: TROPONIN I; Value: < 0.02; Range: < 0.10; Units: NG/ML; Status: F Test Note: ; Troponin I Reference Interval for [place] LOCI: 99th Percentile= 0.00-0.045 ng/ml Risk Stratification: <= 0.10 ng/ml Decreased Risk for Adverse Clinical Events. 0.10-1.50 ng/ml Increased Risk for Adverse Clinical Events. Evaluation of additional criterion and/or repeat testing in 2-6 hours is suggested to rule out myocardial damage. >= 1.50 ng/ml Indicative of Myocardial Injury. Lab Order: Liver Profile; SPEC'M 09/05/16 13:50 Test: AST/SGOT; Value: 30; Range: 15-37; Units: U/L; Status: F Test: ALT/SGPT; Value: 66; Range: 12-78; Units: U/L; Status: F Test: ALKALINE PHOSPHATASE; Value: 67; Range: 45-117; Units: U/L; Status: F Test: BILIRUBIN,TOTAL; Value: 0.3; Range: 0.2-1.0; Units: MG/DL; Status: F Test: BILIRUBIN,DIRECT; Value: < 0.1; Range: 0.0-0.2; Units: MG/DL; Status: F Test: TOTAL PROTEIN; Value: 6.9; Range: 6.4-8.2; Units: GM/DL; Status: F Test: ALBUMIN; Value: 3.7; Range: 3.2-5.2; Units: GM/DL; Status: F Test: ALBUMIN/GLOBULIN RATIO; Value: 1.16; Range: 1.00-1.93; Status: F Lab Order: Lipase; SPEC'M 09/05/16 13:50 Test: LIPASE; Value: 107; Range: 73-393; Units: U/L; Status: F Radiology Order: EKG-ADULT Test: EKG-ADULT REASON FOR EXAMINATION: Chest Pain; Stationary ECG Study; [facility] - ED; ; Test Date: 2016-09-05; Pat Name: EMANUEL DEL RIO Department:; Room: -; 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 The heart is normal in size. The pulmonary vasculature is; normal in appearance. The bony structure is intact.; ; IMPRESSION: No acute disease.; ; ; Signed by; Eze Medellin MD 09/05/2016 04:17 P; Outcome: 17:26 Discharge ordered by Provider. br1 17:51 Discharge Assessment: Patient awake, alert and oriented x 3. No cognitive and/or kcs functional deficits noted. Patient verbalized understanding of disposition instructions. Patient awake and alert. patient administered narcotics - no. The following High Risk Discharge criteria are identified: None. Discharged to home ambulatory. Condition: stable. Discharge instructions given to patient, Instructed on discharge instructions, follow up and referral plans. medication usage, Demonstrated understanding of instructions, medications, Pt was receptive of discharge instructions/ teaching. No special radiology studies were completed. Property sent home with patient. 17:54 Patient left the ED. kcs Signatures: Dispatcher [employer] EDMS Saloni Knight, CARMEN RN Allison Acevedo, Manhole Stripper Unit deg Nancy Rudolph, CARMEN RN Con Sy MD MD br1 Adela Castro RN RN [email or web address] Rox Chairez Nicole nb2 Chart Complete MTDD
== END 2016-09-05 17:54 | disposition home or self-care (01) ==
LOC: M ED 13:35
DX: R07.9 Chest pain, unspecified (principal); F32.9 Major depressive disorder, single episode, unspecified; K21.9 Gastro-esophageal reflux disease without esophagitis; I10 Essential (primary) hypertension; F25.9 Schizoaffective disorder, unspecified; Z86.14 Personal history of Methicillin resistant Staphylococcus aureus infection; Z79.899 Other long term (current) drug therapy; Z88.2 Allergy status to sulfonamides; Z88.8 Allergy status to other drugs, medicaments and biological substances; Z91.030 Bee allergy status
CPT/HCPCS: 36415; 71020; 80048; 80076; 82550; 82553; 83690; 85025; 93005; 93041; 96374; 99284; J2405

== ENCOUNTER 2016-10-04 10:36 | Emergency (ER) | payer OTHER ==
[~2016-10-04] VITALS: Ht 172.7 cm; Wt 142.9 kg
[2016-10-04] MEDS ORDERED: INVE234I IM (10:52)
[2016-10-04 12:31] LABS: ALBUMIN 4.1 GM/DL (3.2-5.2); ALBUMIN/GLOBULIN RATIO 1.52 (1.00-1.93); ALKALINE PHOSPHATASE 61 U/L (45-117); ALT/SGPT 88 U/L (12-78); ANION GAP 7 MEQ/L (8-16); AST/SGOT 36 U/L (15-37); BILIRUBIN,DIRECT 0.1 MG/DL (0.0-0.2); BILIRUBIN,TOTAL 0.3 MG/DL (0.2-1.0); BLOOD UREA NITROGEN 11 MG/DL (7-18); CALCIUM LEVEL 9.2 MG/DL (8.5-10.1); CARBON DIOXIDE LEVEL 29 MEQ/L (21-32); CHLORIDE LEVEL 107 MEQ/L (98-107); CREATININE FOR GFR 0.99 MG/DL (0.70-1.30); GLOMERULAR FILTRATION RATE > 60.0 (>60); GLUCOSE, FASTING 88 MG/DL (70-105); SODIUM LEVEL 143 MEQ/L (136-145); TOTAL PROTEIN 6.8 GM/DL (6.4-8.2)
[2016-10-04 12:32] LABS: MEAN CORPUSCULAR HEMOGLOBIN 29.1 pg (27.0-33.0); MEAN CORPUSCULAR VOLUME 85.4 fl (80.0-96.0); RED CELL DISTRIBUTION WIDTH 12.7 % (11.5-14.5); WHITE BLOOD COUNT 5.4 K/mm3 (4.0-10.0)
[2016-10-04 12:47] LABS: METHADONE URINE NEGATIVE (NEGATIVE)
[2016-10-04] MEDS ORDERED: ZOFR4TAB3 PO (15:36)
[2016-10-04 16:08] VITALS: BP 140/69
== END 2016-10-04 16:12 | disposition home or self-care (01) ==
LOC: M ED 13:39
DX: F32.9 Major depressive disorder, single episode, unspecified (principal); I10 Essential (primary) hypertension; K21.9 Gastro-esophageal reflux disease without esophagitis; F25.9 Schizoaffective disorder, unspecified; Z79.899 Other long term (current) drug therapy; Z91.030 Bee allergy status; Z91.013 Allergy to seafood; Z88.2 Allergy status to sulfonamides; Z88.8 Allergy status to other drugs, medicaments and biological substances
CPT/HCPCS: 80048; 80076; 80175; 80306; 84443; 85027; 99285; G0480

== ENCOUNTER 2016-12-07 18:11 | Emergency (ER) | payer OTHER ==
[~2016-12-07] VITALS: Ht 172.7 cm; Wt 127.0 kg
[2016-12-07] MEDS ORDERED: NS 1,000 ML IV ONE (20:00)
[2016-12-07] MEDS ORDERED: MECLIZINE 25 MG TABLET PO ONE (20:00)
[2016-12-07 20:34] LABS: BASO % 0.4 % (0.0-1.0); EOS # 0.1 K/mm3 (0.0-0.50); EOS % 1.7 % (0.0-3.0); LARGE UNSTAINED CELL # 0.1 K/mm3 (0.0-0.4); LARGE UNSTAINED CELL % 1.8 % (0.0-4.0); LYMPH # 2.7 K/mm3 (1.5-6.5); MEAN CORPUSCULAR HEMOGLOBIN 29.4 pg (27.0-33.0); MEAN CORPUSCULAR HGB CONC 34.1 g/dl (32.0-36.5); MEAN CORPUSCULAR VOLUME 86.3 fl (80.0-96.0); MONO # 0.7 K/mm3 (0.0-0.8); MONO % 8.5 % (0.0-5.0); NEUTROPHILS # 3.9 K/mm3 (1.8-7.7); NEUTROPHILS % 51.5 % (36.0-66.0); PLATELET COUNT, AUTOMATED 274 k/mm3 (150-450); RED CELL DISTRIBUTION WIDTH 12.8 % (11.5-14.5); WHITE BLOOD COUNT 7.6 K/mm3 (4.0-10.0)
[2016-12-07 20:51] LABS: ALBUMIN 3.6 GM/DL (3.2-5.2); ALBUMIN/GLOBULIN RATIO 1.29 (1.00-1.93); ALKALINE PHOSPHATASE 59 U/L (45-117); ALT/SGPT 108 U/L (12-78); ANION GAP 8 MEQ/L (8-16); AST/SGOT 44 U/L (15-37); BILIRUBIN,DIRECT 0.1 MG/DL (0.0-0.2); BILIRUBIN,TOTAL 0.3 MG/DL (0.2-1.0); BLOOD UREA NITROGEN 9 MG/DL (7-18); CALCIUM LEVEL 8.6 MG/DL (8.5-10.1); CARBON DIOXIDE LEVEL 27 MEQ/L (21-32); CHLORIDE LEVEL 106 MEQ/L (98-107); CREATININE FOR GFR 0.99 MG/DL (0.70-1.30); GLOMERULAR FILTRATION RATE > 60.0 (>60); GLUCOSE, FASTING 141 MG/DL (70-105); POTASSIUM SERUM 3.6 MEQ/L (3.5-5.1); SODIUM LEVEL 141 MEQ/L (136-145); TOTAL PROTEIN 6.4 GM/DL (6.4-8.2)
[2016-12-07] MEDS ORDERED: METOCLOPRAMIDE INJ 10MG/2ML VIAL (J2765) IV ONE (21:00)
[2016-12-07] MEDS ORDERED: ONDANSETRON 4MG/2ML VIAL (J2405) IV ONE (21:30)
--- NOTE | 2016-12-07 23:10 | REPUSA ---
CT of the head Clinical history: dizziness. Technique: Multiple axial CT images were obtained through the head without administration of contrast . Comparison: 07/26/2016. Findings: The ventricles and sulci are symmetric bilaterally. There is no evidence of acute hemorrhag e or infarct. There is no midline shift, mass effect, or extra-axial fluid collection. The osseous st ructures are unremarkable. The visualized paranasal sinuses and mastoid air cells are clear. Impression: Negative study.
[2016-12-08] MEDS ORDERED: ZOFR4TAB3 PO (00:22)
[2016-12-08] MEDS ORDERED: VALI5TAB PO (00:22)
[2016-12-08 00:27] VITALS: BP 122/74
--- NOTE | 2016-12-08 08:59 | ECGEPIP ---
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
== END 2016-12-08 00:37 | disposition home or self-care (01) ==
LOC: EDBD 18:11 → M ED 19:13
DX: R42 Dizziness and giddiness (principal); Z79.899 Other long term (current) drug therapy; Z88.2 Allergy status to sulfonamides; Z88.8 Allergy status to other drugs, medicaments and biological substances; Z91.030 Bee allergy status; Z91.013 Allergy to seafood

== ENCOUNTER 2017-06-11 21:51 | Emergency (ER) | payer OTHER ==
[~2017-06-11] VITALS: Ht 177.8 cm; Wt 120.5 kg
[~2017-06-11 21:51] MED LIST changes: +BACITAB PO; -BACITAB3 PO; +CIPR-249 PO; +IBUP-1022 PO; -IBUP600T26 PO; +LEVA1TAB2 PO; -LEVA500T PO; -MACR100C3 PO; +MACR100C43 PO; -OXYB5TA PO; +OXYB5TAB10 PO; -SENO8.6T2 PO; +SENO8.6T5 PO; -SILV1CRE19 TOP; +SILV1CRE60 TOP; +TOPA1TAB PO; -TOPA25TA10 PO; +TRAZ50TA11 PO; -TRAZ50TA4 PO; +VALI5TAB PO; +VITA1CAP40 PO; -VITA50003 PO
[2017-06-11] MEDS ORDERED: LAMO100T PO (22:04)
[2017-06-11] MEDS ORDERED: OMEP20CA3 PO (22:04)
[2017-06-11] MEDS ORDERED: INVE1INJ IM (22:04)
[2017-06-11] MEDS ORDERED: NS 1,000 ML IV ONE (22:45)
[2017-06-12 00:06] LABS: ALBUMIN 3.4 GM/DL (3.2-5.2); ALBUMIN/GLOBULIN RATIO 0.92 (1.00-1.93); ALKALINE PHOSPHATASE 39 U/L (45-117); ALT/SGPT 37 U/L (12-78); ANION GAP 4 MEQ/L (8-16); AST/SGOT 17 U/L (7-37); BILIRUBIN,DIRECT 0.1 MG/DL (0.0-0.2); BILIRUBIN,TOTAL 0.6 MG/DL (0.2-1.0); BLOOD UREA NITROGEN 9 MG/DL (7-18); CALCIUM LEVEL 9.6 MG/DL (8.5-10.1); CARBON DIOXIDE LEVEL 31 MEQ/L (21-32); CHLORIDE LEVEL 104 MEQ/L (98-107); CREATININE FOR GFR 1.02 MG/DL (0.70-1.30); GLOMERULAR FILTRATION RATE > 60.0 (>60); GLUCOSE, FASTING 90 MG/DL (70-105); POTASSIUM SERUM 3.3 MEQ/L (3.5-5.1); SODIUM LEVEL 139 MEQ/L (136-145); TOTAL PROTEIN 7.1 GM/DL (6.4-8.2)
[2017-06-12 00:33] LABS: BASO # 0.1 10^3/uL (0.0-0.2); BASO % 0.4 % (0.0-1.0); EOS # 0.2 10^3/uL (0.0-0.50); EOS % 1.5 % (0.0-3.0); IMMATURE GRANULOCYTE % 0.3 % (0-0); LYMPH # 3.4 10^3/uL (1.5-6.5); LYMPH % 26.3 % (24.0-44.0); MEAN CORPUSCULAR HEMOGLOBIN 29.2 pg (27.0-33.0); MEAN CORPUSCULAR HGB CONC 33.5 g/dl (32.0-36.5); MEAN CORPUSCULAR VOLUME 87.3 fl (80.0-96.0); MONO % 15.3 % (0.0-5.0); NEUTROPHILS # 7.2 10^3/uL (1.8-7.7); NEUTROPHILS % 56.2 % (36.0-66.0); PLATELET COUNT, AUTOMATED 230 10^3/uL (150-450); RED CELL DISTRIBUTION WIDTH 12.3 % (11.5-14.5); WHITE BLOOD COUNT 12.8 10^3/uL (4.0-10.0)
[2017-06-12 02:02] VITALS: BP 139/67
== END 2017-06-12 02:03 | disposition home or self-care (01) ==
LOC: M ED 21:51
DX: K58.0 Irritable bowel syndrome with diarrhea (principal); Z87.440 Personal history of urinary (tract) infections; R51 Headache; F41.9 Anxiety disorder, unspecified; F32.9 Major depressive disorder, single episode, unspecified; Z79.899 Other long term (current) drug therapy; Z91.030 Bee allergy status; Z91.013 Allergy to seafood; Z88.2 Allergy status to sulfonamides; Z88.8 Allergy status to other drugs, medicaments and biological substances

== ENCOUNTER 2017-11-15 23:29 | Emergency (ER) | payer OTHER ==
[2017-11-16] MEDS: NS 1,000 ML IV (00:41)
[2017-11-16] MEDS: MORPHINE 4 MG/ML 1ML VIAL/SYRINGE (J2270) IV (00:41)
[2017-11-16 00:44] LABS: BASO % 0.3 % (0.0-1.0); EOS % 0.2 % (0.0-3.0); HEMATOCRIT 44.8 % (42.0-52.0); IMMATURE GRANULOCYTE % 0.3 % (0-3.0); LYMPH # 1.4 10^3/uL (1.5-6.5); MEAN CORPUSCULAR HEMOGLOBIN 28.4 pg (27.0-33.0); MEAN CORPUSCULAR HGB CONC 33.5 g/dl (32.0-36.5); MEAN CORPUSCULAR VOLUME 84.7 fl (80.0-96.0); MONO % 11.5 % (0.0-5.0); NEUTROPHILS # 6.3 10^3/uL (1.8-7.7); NEUTROPHILS % 71.7 % (36.0-66.0); PLATELET COUNT, AUTOMATED 217 10^3/uL (150-450); RED BLOOD COUNT 5.29 10^6/uL (4.30-6.10); WHITE BLOOD COUNT 8.8 10^3/uL (4.0-10.0)
[2017-11-16] MEDS ORDERED: ACETAMINOPHEN 650 MG SUPP PR (00:45)
[2017-11-16] MEDS ORDERED: ISOVUE-370 76% 100ML VIAL (Q9967) As Ordered (00:46)
[2017-11-16 00:56] LABS: ALBUMIN 3.6 GM/DL (3.2-5.2); ALBUMIN/GLOBULIN RATIO 0.95 (1.00-1.93); ALKALINE PHOSPHATASE 44 U/L (45-117); ALT/SGPT 30 U/L (12-78); ANION GAP 7 MEQ/L (8-16); AST/SGOT 14 U/L (7-37); BILIRUBIN,DIRECT 0.1 MG/DL (0.0-0.2); BILIRUBIN,TOTAL 0.6 MG/DL (0.2-1.0); BLOOD UREA NITROGEN 9 MG/DL (7-18); CALCIUM LEVEL 8.9 MG/DL (8.5-10.1); CARBON DIOXIDE LEVEL 27 MEQ/L (21-32); CHLORIDE LEVEL 106 MEQ/L (98-107); CREATININE FOR GFR 1.04 MG/DL (0.70-1.30); GLOMERULAR FILTRATION RATE > 60.0 (>60); GLUCOSE, FASTING 106 MG/DL (70-100); LIPASE 74 U/L (73-393); SODIUM LEVEL 140 MEQ/L (136-145); TOTAL PROTEIN 7.4 GM/DL (6.4-8.2)
[2017-11-16 00:56] LABS: LACTIC ACID SEPSIS PROTOCOL 1.3 MMOL/L (0.4-2.0)
[2017-11-16 00:59] LABS: KETONE, URINE AUTO RFX NEGATIVE (NEGATIVE); LEUKOCYTE ESTERASE UR AUTO RFX NEGATIVE (NEGATIVE); NITRITE, URINE AUTO RFX NEGATIVE (NEGATIVE); RBC, URINE AUTO RFX 5 /HPF (0-3); SPECIFIC GRAVITY UR AUTO RFX 1.014 (1.002-1.035); SQUAM EPITHELIAL CELL UR AURFX 1 /HPF (0-6); WBC, URINE AUTO RFX 4 /HPF (0-3)
[2017-11-16] MEDS: MAGNESIUM CITRATE 300 ML BTL PO (05:15)
[2017-11-16] MEDS: IBUPROFEN 800 MG TAB PO (05:26)
== END 2017-11-16 05:35 | disposition home or self-care (01) ==
LOC: M ED 23:29
DX: K59.00 Constipation, unspecified (principal); K76.0 Fatty (change of) liver, not elsewhere classified; I10 Essential (primary) hypertension; K21.9 Gastro-esophageal reflux disease without esophagitis; K58.9 Irritable bowel syndrome, unspecified; F41.9 Anxiety disorder, unspecified; F33.9 Major depressive disorder, recurrent, unspecified; F25.9 Schizoaffective disorder, unspecified; Z87.19 Personal history of other diseases of the digestive system; Z87.440 Personal history of urinary (tract) infections; Z88.1 Allergy status to other antibiotic agents; Z88.2 Allergy status to sulfonamides; Z88.8 Allergy status to other drugs, medicaments and biological substances; Z91.013 Allergy to seafood; Z91.030 Bee allergy status
CPT/HCPCS: J2270